=== PATIENT | male | born 1945 | race American Indian/Alaskan Native ===

== ENCOUNTER 2016-12-02 10:16 | Inpatient (IN) | payer MEDICARE, OTHER ==
--- NOTE | 2016-12-02 11:06 | Emergency Department Report ---
Entered by ROLAND ROY, acting as scribe for AJNA JOHN NP. Chief Complaint: Abdominal Pain Stated Complaint: ABD PAIN Time Seen by Provider: 12/02/16 10:58 - HPI History of Present Illness: 71 y/o non-toxic, non ill-appearing male in no acute distress presents to ED c/ o abdominal pain and constipation since 1 week ago. Denies N/V, epigastric pain. Was seen at [facility] 1 week ago for the same complaints, where CT scan was performed with normal results. No relief despite administering stool softeners. Pt advises his Sx persisted and became worse with being "unable to sense cold and heat" on the right side of his body. 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 - ROS Review of Systems: + abdominal pain, right side numbness, constipation - N/V, chest pain, SOB - Exam Vital Signs: Vital Signs 12/02/16 10:50 Temperature 98.4 F Pulse Rate 89 Respiratory 20 Rate Blood Pressure 150/94 O2 Sat by Pulse 94 Oximetry Physical Exam: No abdominal point tenderness, no rebound tenderness, normal bowel sounds x 4, non-distended MSE screening note: Focused history and physical exam performed. Due to findings the following was ordered: UA, amylase, CBC, CMP, lipase ED Disposition for MSE Condition: Stable This documentation as recorded by the scribe,ROLAND ROY,accurately reflects the service I personally performed and the decisions made by ALVARO gray MARTIN, KRISTOPHER.
[2016-12-02 11:23] LABS: Basophils % (Auto) 0.8 % (0.0-1.8); Eosinophils % (Auto) 2.7 % (0.0-4.3); Hematocrit 43.3 % (35.5-45.6); Hemoglobin 14.6 gm/dl (11.8-15.2); Mean Corpuscular HGB Conc 34 % (32-34); Mean Corpuscular Hemoglobin 31 pg (28-32); Mean Corpuscular Volume 93 fl (84-94); Platelet Count 213 K/mm3 (140-440); Red Blood Count 4.65 M/mm3 (3.65-5.03); Red Cell Distribution Width 13.2 % (13.2-15.2); White Blood Count 8.5 K/mm3 (4.5-11.0)
[2016-12-02 11:39] LABS: Alanine Aminotransferase 12 units/L (7-56); Albumin 4.1 g/dL (3.9-5); Albumin/Globulin Ratio 1.2 %; Amylase 53 units/L (27-131); Anion Gap 14 mmol/L; BUN/Creatinine Ratio 13.33; Blood Urea Nitrogen 12 mg/dL (9-20); Calcium 9.4 mg/dL (8.4-10.2); Carbon Dioxide 32 mmol/L (22-30); Chloride 101.5 mmol/L (98-107); Glucose 130 mg/dL (75-100); Lipase 21 units/L (13-60); Potassium 4.9 mmol/L (3.6-5.0); Sodium 143 mmol/L (137-145); Total Protein 7.4 g/dL (6.3-8.2)
[2016-12-02 12:03] LABS: Alkaline Phosphatase 66 units/L (35-129)
[2016-12-02 14:02] LABS: Bilirubin,Urine NEG (Negative); Blood,Urine SM (Negative); Ketones,Urine NEG (Negative); Leukocyte Esterase,Urine NEG (Negative); Mucus,Urine FEW /HPF; Nitrite,Urine NEG (Negative); Urobilinogen,Urine < 2.0 mg/dL (<2.0); WBC,Urine < 1.0 /HPF (0.0-6.0)
[2016-12-02] MEDS ORDERED: ZOFRAN ODT PO ONE (14:31)
[2016-12-02] MEDS ORDERED: TYLENOL PO ONE (14:31)
[2016-12-02] MEDS ORDERED: BENTYL PO ONE (14:31)
--- NOTE | 2016-12-02 14:32 | Emergency Department Report ---
ED General Adult HPI - General Chief complaint: Abdominal Pain Stated complaint: ABD PAIN Time Seen by Provider: 12/02/16 14:18 Source: patient, RN notes reviewed, old records reviewed Mode of arrival: Ambulatory Limitations: No Limitations - History of Present Illness Initial comments: This is a 71-year-old male. He is previously unknown to me. The patient presents to the ER with 2 complaints. The patient's first complaint is abdominal pain and constipation. It has been present for a few days. The abdominal pain is achy. It does not radiate anywhere. No vomiting. No chest pain or shortness of breath. No testicular pain. Patient reports that he is constipated and defecating less than normally. The patient's last complaint is change in sensation. He reports an inability to perceive temperatures, hot and cold in his right upper extremity and right lower extremity. This has been present for one week. It is constant. It was associated with transient change in ability to swallow. This dysphasia has since resolved. These sensory changes are constant, and have no exacerbating or relieving factors. -: Gradual Location: abdomen, right, upper extremity Quality: aching Consistency: constant Improves with: none Worsens with: none Associated Symptoms: denies: confusion, chest pain, cough, diaphoresis, fever/ chills, headaches, loss of appetite, malaise, nausea/vomiting, rash, shortness of breath, syncope, weakness - Related Data Previous Rx's Medication Instructions Recorded Last Taken Type Bisacodyl [Dulcolax] 5 mg PO DAILY PRN #7 tab 12/04/16 Unknown Rx Clopidogrel [Plavix] 75 mg PO QDAY #30 tablet 12/04/16 Unknown Rx Sennosides/Docusate Sodium 1 each PO BID #60 tablet 12/04/16 Unknown Rx [Doc-Q-Lax Tablet] Simvastatin [Zocor TAB] 20 mg PO QHS #30 tablet 12/04/16 Unknown Rx Allergies Allergy/AdvReac Type Severity Reaction Status Date / Time No Known Allergies Allergy Unverified 12/02/16 10:50 ED Review of Systems ROS: Stated complaint: ABD PAIN Other details as noted in HPI Constitutional: denies: fever Eyes: denies: vision change ENT: denies: epistaxis Respiratory: denies: cough Cardiovascular: denies: palpitations Gastrointestinal: constipation Genitourinary: denies: testicular pain Musculoskeletal: denies: arthralgia Neurological: numbness, paresthesias. denies: headache, weakness, abnormal gait , vertigo ED Past Medical Hx - Past Medical History Previous Medical History?: Yes Additional medical history: Abdominal pain - Surgical History Past Surgical History?: No - Social History Smoking Status: Former Smoker Substance Use Type: Alcohol, Prescribed - Medications Home Medications: Home Medications Medication Instructions Recorded Confirmed Last Taken Type Bisacodyl [Dulcolax] 5 mg PO DAILY PRN #7 tab 12/04/16 Unknown Rx Clopidogrel [Plavix] 75 mg PO QDAY #30 tablet 12/04/16 Unknown Rx Sennosides/Docusate Sodium 1 each PO BID #60 tablet 12/04/16 Unknown Rx [Doc-Q-Lax Tablet] Simvastatin [Zocor TAB] 20 mg PO QHS #30 tablet 12/04/16 Unknown Rx ED Physical Exam - General Limitations: No Limitations General appearance: alert, in no apparent distress - Head Head exam: Present: atraumatic, normocephalic - Eye Eye exam: Present: normal appearance, EOMI. Absent: nystagmus - ENT ENT exam: Present: normal exam, normal orophraynx, mucous membranes moist, normal external ear exam - Neck Neck exam: Present: normal inspection, full ROM. Absent: tenderness, meningismus - Respiratory Respiratory exam: Present: normal lung sounds bilaterally. Absent: respiratory distress, wheezes, rales, rhonchi, stridor, chest wall tenderness, accessory muscle use, decreased breath sounds, prolonged expiratory - Cardiovascular Cardiovascular Exam: Present: regular rate, normal rhythm, normal heart sounds. Absent: bradycardia, tachycardia, irregular rhythm, systolic murmur, diastolic murmur, rubs, gallop - GI/Abdominal GI/Abdominal exam: Present: soft, normal bowel sounds. Absent: distended, tenderness, guarding, rebound, rigid, pulsatile mass - Rectal Rectal exam: Present: deferred - Extremities Exam Extremities exam: Present: normal inspection, full ROM, normal capillary refill. Absent: pedal edema, joint swelling, calf tenderness - Back Exam Back exam: Present: normal inspection, full ROM. Absent: tenderness, CVA tenderness (R), CVA tenderness (L), muscle spasm, paraspinal tenderness, vertebral tenderness - Neurological Exam Neurological exam: Present: alert, oriented X3, normal gait, reflexes normal ( downgoing plantar reflexes bilaterally.), other (there is no facial droop. The tongue is midline. Extraocular movements are intact bilaterally. Sensation is intact to light touch in the bilateral V1, V2, V3 distribution. There is 5/5 strength in the upper and lower extremities bilaterally. Proprioception is intact in 4 extremities. 2. discrimination is not intact in 4 extremities. Sensation is decreased to perception of heat and cold in the right upper extremity and right lower extremity. Sensation is decreased to pinprick in the right upper extremity and right lower extremity.) - Psychiatric Psychiatric exam: Present: normal affect, normal mood - Skin Skin exam: Present: warm, dry, intact, normal color. Absent: rash ED Course Vital Signs 12/02/16 12/02/16 12/02/16 10:50 12:17 12:21 Temperature 98.4 F Pulse Rate 89 Respiratory 20 Rate Blood Pressure 150/94 161/93 O2 Sat by Pulse 94 99 99 Oximetry 12/02/16 12/02/16 12/02/16 12:26 12:30 12:41 Temperature Pulse Rate Respiratory 18 Rate Blood Pressure 144/91 144/91 O2 Sat by Pulse 100 99 98 Oximetry 12/02/16 12/02/16 12/02/16 12:51 13:00 13:11 Temperature Pulse Rate Respiratory Rate Blood Pressure 144/82 144/85 144/85 O2 Sat by Pulse 99 99 99 Oximetry 12/02/16 12/02/16 12/02/16 13:21 13:47 13:51 Temperature Pulse Rate Respiratory Rate Blood Pressure 172/113 172/113 172/113 O2 Sat by Pulse 96 99 96 Oximetry 12/02/16 12/02/16 12/02/16 14:00 14:11 14:41 Temperature Pulse Rate Respiratory Rate Blood Pressure 164/125 164/125 165/103 O2 Sat by Pulse 97 100 Oximetry 12/02/16 12/02/16 12/02/16 14:51 15:00 15:10 Temperature Pulse Rate Respiratory Rate Blood Pressure 163/97 170/106 170/106 O2 Sat by Pulse 98 97 87 Oximetry 12/02/16 12/02/16 12/02/16 17:14 17:21 17:30 Temperature Pulse Rate Respiratory Rate Blood Pressure 143/94 143/94 151/93 O2 Sat by Pulse 97 98 97 Oximetry 05/03/1312/02/16 12/02/16 17:41 17:51 18:00 Temperature Pulse Rate Respiratory Rate Blood Pressure 170/106 143/94 165/88 O2 Sat by Pulse 96 98 97 Oximetry 12/02/16 12/02/16 12/02/16 18:11 18:21 18:31 Temperature Pulse Rate Respiratory Rate Blood Pressure 165/88 162/79 162/79 O2 Sat by Pulse 98 97 85 Oximetry 12/02/16 12/02/16 12/02/16 18:41 18:51 19:00 Temperature Pulse Rate Respiratory Rate Blood Pressure 142/79 167/108 169/96 O2 Sat by Pulse 94 98 97 Oximetry 12/02/16 12/02/16 12/02/16 19:11 19:21 19:31 Temperature Pulse Rate Respiratory Rate Blood Pressure 169/96 160/105 165/104 O2 Sat by Pulse 98 98 97 Oximetry 12/02/16 19:41 Temperature Pulse Rate Respiratory Rate Blood Pressure 165/104 O2 Sat by Pulse 98 Oximetry - Reevaluation(s) Reevaluation #1: 12/02/16 16:57 differential diagnosis: Constipation, radiculopathy, sensory stroke Assessment and plan: 71-year-old male with 2 complaints. Abdomen is soft. Noncontrast CT scan of the abdomen and pelvis negative for acute disease. He is not clinically or radiographically obstructed. His nonspecific sensory complaints, symptoms have been present for days, therefore he is not a TPA candidate. The CT scan is sent to the neurology cost consultant at [place], [facility], who recommended acquisition of MRI, MRA of the head and neck to exclude sensory stroke. The patient indicates he will stay for this workup. Dr. Corley, the [facility] physician accepts the patient to his service. ED Medical Decision Making - Lab Data Result diagrams: 12/02/16 11:05 12/02/16 11:05 Vital Signs 12/02/16 12/02/16 12/02/16 10:50 12:17 12:21 Temperature 98.4 F Pulse Rate 89 Respiratory 20 Rate Blood Pressure 150/94 161/93 O2 Sat by Pulse 94 99 99 Oximetry 12/02/16 12/02/16 12/02/16 12:26 12:30 12:41 Temperature Pulse Rate Respiratory 18 Rate Blood Pressure 144/91 144/91 O2 Sat by Pulse 100 99 98 Oximetry 12/02/16 12/02/16 12/02/16 12:51 13:00 13:11 Temperature Pulse Rate Respiratory Rate Blood Pressure 144/82 144/85 144/85 O2 Sat by Pulse 99 99 99 Oximetry 12/02/16 12/02/16 12/02/16 13:21 13:47 13:51 Temperature Pulse Rate Respiratory Rate Blood Pressure 172/113 172/113 172/113 O2 Sat by Pulse 96 99 96 Oximetry 12/02/16 12/02/16 12/02/16 14:00 14:11 14:41 Temperature Pulse Rate Respiratory Rate Blood Pressure 164/125 164/125 165/103 O2 Sat by Pulse 97 100 Oximetry 12/02/16 12/02/16 12/02/16 14:51 15:00 15:10 Temperature Pulse Rate Respiratory Rate Blood Pressure 163/97 170/106 170/106 O2 Sat by Pulse 98 97 87 Oximetry Lab Results 12/02/16 12/02/16 12/02/16 Range/Units 11:05 11:05 13:37 WBC 8.5 (4.5-11.0) K/mm3 RBC 4.65 (3.65-5.03) M/mm3 Hgb 14.6 (11.8-15.2) gm/dl Hct 43.3 (35.5-45.6) % MCV 93 (84-94) fl MCH 31 (28-32) pg MCHC 34 (32-34) % RDW 13.2 (13.2-15.2) % Plt Count 213 (140-440) K/mm3 Lymph % (Auto) 22.4 (13.4-35.0) % [place] % (Auto) 10.4 H (0.0-7.3) % Eos % (Auto) 2.7 (0.0-4.3) % Baso % (Auto) 0.8 (0.0-1.8) % Lymph # 1.9 (1.2-5.4) K/mm3 [place] # 0.9 H (0.0-0.8) K/mm3 Eos # 0.2 (0.0-0.4) K/mm3 Baso # 0.1 (0.0-0.1) K/mm3 Seg Neutrophils % 63.7 (40.0-70.0) % Seg Neutrophils # 5.4 (1.8-7.7) K/mm3 Sodium 143 (137-145) mmol/L Potassium 4.9 (3.6-5.0) mmol/L Chloride 101.5 (98-107) mmol/L Carbon Dioxide 32 H (22-30) mmol/L Anion Gap 14 mmol/L BUN 12 (9-20) mg/dL Creatinine 0.9 (0.8-1.5) mg/dL Estimated GFR > 60 ml/min BUN/Creatinine Ratio 13.33 % Glucose 130 H (75-100) mg/dL Calcium 9.4 (8.4-10.2) mg/dL Total Bilirubin 0.50 (0.1-1.2) mg/dL AST 17 (5-40) units/L ALT 12 (7-56) units/L Alkaline Phosphatase 66 (35-129) units/L Total Protein 7.4 (6.3-8.2) g/dL Albumin 4.1 (3.9-5) g/dL Albumin/Globulin Ratio 1.2 % Amylase 53 (27-131) units/L Lipase 21 (13-60) units/L Urine Color Yellow (Yellow) Urine Turbidity Clear (Clear) Urine pH 6.0 (5.0-7.0) Ur Specific [place] 1.014 (1.003-1.030) Urine Protein 30 mg/dl (Negative) mg/dL Urine Glucose (UA) Neg (Negative) mg/dL Urine Ketones Neg (Negative) mg/dL Urine Blood Sm (Negative) Urine Nitrite Neg (Negative) Urine Bilirubin Neg (Negative) Urine Ictotest Not Reportable Urine Urobilinogen < 2.0 (<2.0) mg/dL Ur Leukocyte Esterase Neg (Negative) Urine WBC (Auto) < 1.0 (0.0-6.0) /HPF Urine RBC (Auto) 3.0 (0.0-6.0) /HPF U Epithel Cells (Auto) < 1.0 (0-13.0) /HPF Urine Mucus Few /HPF - EKG Data When compared to previous EKG there are: previous EKG unavailable 12/02/16 17:18 Normal sinus, 68 bpm, left axis deviation, not consistent with STEMI - Radiology Data Radiology results: report reviewed, image reviewed Noncontrast CT scan of the brain is negative. Noncontrast CT scan of the abdomen and pelvis is negative. Critical care attestation.: If time is entered above; I have spent that time in minutes in the direct care of this critically ill patient, excluding procedure time. ED Disposition Clinical Impression: Abdominal pain, History of sensory changes Disposition: OP ADMITTED IP TO THIS HOSP Is pt being admited?: Yes Does the pt Need Aspirin: Yes Condition: Stable
--- NOTE | 2016-12-02 15:48 | Cat Scan Report ---
CT HEAD WITHOUT CONTRAST: HISTORY: Right sided numbness. Serial contiguous axial images were obtained through the cranium. Intravenous contrast material was not administered. The ventricles are normal in size and appearance. There is no mass effect or midline shift. No areas of abnormally increased or decreased attenuation are seen. No mass lesion is seen. The mastoid air cells and visualized portions of the sinuses are normal. IMPRESSION: No acute intracranial process is appreciated.
--- NOTE | 2016-12-02 15:49 | Cat Scan Report ---
CT OF THE ABDOMEN AND PELVIS WITHOUT CONTRAST HISTORY: Abdominal pain. TECHNIQUE: Helical CT without contrast. Sagittal and coronal reformatted images. FINDINGS: Within the limits of a noncontrast exam, the abdominal and pelvic viscera are within normal limits. The liver, biliary system, pancreas, spleen, kidneys, adrenal glands and bladder are unremarkable. 3 cm cyst in the midright kidney is noted. The bowel loops are normal caliber and wall thickness. Normal appendix. The aorta is normal caliber. No ascites, bulky adenopathy or inflammatory changes. The lung bases are clear. Normal heart size. No suspicious bony lesion. IMPRESSION: No acute abdominal process identified.
[2016-12-02] MEDS ORDERED: BABY ASPIRIN PO ONE (17:00)
--- NOTE | 2016-12-02 17:13 | History and Physical Report ---
History of Present Illness Chief complaint: I felt weak on my right side, and i havent gone to the bathroom in a week History of present illness: 71 YO Male with Obesity, presents to ED for evaluation. Pt states that he has experienced Right sided weakness for the past week. Pt states that symptoms come and go. Pt acknowledges transient inability to swallow and changes in his speech. Pt also complains of chronic constipation with no bowel movements in the past week. Pt states that has has small amounts of formed stool, but denies changes in stool size, caliber, or content, BRBPR, pencil thin stool, unintentional weight loss, night sweats. Pt had normal colonoscopy 3 years ago. Pt states that he just feels "broke down" Past History Past Medical History: other (obesity) Past Surgical History: Other (colonoscopy x3) Social history: . denies: smoking, alcohol abuse, prescription drug abuse Family history: diabetes, hypertension Medications and Allergies Allergies Allergy/AdvReac Type Severity Reaction Status Date / Time No Known Allergies Allergy Unverified 12/02/16 10:50 Home Medications Medication Instructions Recorded Confirmed Last Taken Type No Known Home Medications [No 12/02/16 12/02/16 Unknown History Reported Home Medications] Review of Systems All systems: negative Constitutional: weakness, other (constipation) Exam - Constitutional Vitals: Temp Pulse Resp BP Pulse Ox 98.4 F 89 18 170/106 87 12/02/16 10:50 12/02/16 10:50 12/02/16 12:26 12/02/16 15:10 12/02/16 15:10 General appearance: Present: obese - EENT Eyes: Present: PERRL ENT: hearing intact, clear oral mucosa - Neck Neck: Present: supple, normal ROM - Respiratory Respiratory effort: normal Respiratory: bilateral: CTA - Cardiovascular Heart Sounds: Present: S1 & S2. Absent: rub, click - Extremities Extremities: pulses symmetrical, No edema Peripheral Pulses: within normal limits - Abdominal General gastrointestinal: Present: soft, non-tender, non-distended, normal bowel sounds Male genitourinary: Present: normal - Integumentary Integumentary: Present: clear, warm, dry - Musculoskeletal Musculoskeletal: gait normal, strength equal bilaterally - Psychiatric Psychiatric: appropriate mood/affect, intact judgment & insight - Neurologic Neurologic: CNII-XII intact, moves all extremities Results - Labs CBC & Chem 7: 05/08/17 11:05 12/02/16 11:05 Labs: Abnormal lab results 12/02/16 12/02/16 Range/Units 11:05 11:05 [place] % (Auto) 10.4 H (0.0-7.3) % [place] # 0.9 H (0.0-0.8) K/mm3 Carbon Dioxide 32 H (22-30) mmol/L Glucose 130 H (75-100) mg/dL Assessment and Plan - Patient Problems (1) TIA (transient ischemic attack) Current Visit: Yes Status: Acute Qualifiers: Transient cerebral ischemia type: T Plan to address problem: Stroke Protocol: MRI/MRA Brain, CT Head, PT/OT/ Speech Therapy, antiplatelet therapy, lipid panel (2) Constipation Current Visit: Yes Status: Acute Qualifiers: Constipation type: C Plan to address problem: bowel regimen (3) Obesity (BMI 30.0-34.9) Current Visit: Yes Status: Acute Plan to address problem: Pt counseled regarding balanced diet, increased physical activity (4) DVT prophylaxis Current Visit: Yes Status: Acute
[2016-12-02] MEDS ORDERED: PHENERGAN PR PRN (19:14)
[2016-12-02] MEDS ORDERED: DULCOLAX PR PRN (19:14)
[2016-12-02] MEDS ORDERED: ZOFRAN IV PRN (19:14)
[2016-12-02] MEDS ORDERED: SODIUM CHLORIDE FLUSH SYRINGE 10 ML IV PRN (19:14)
[2016-12-02] MEDS ORDERED: TYLENOL PO PRN (19:14)
[2016-12-02] MEDS ORDERED: REGLAN PO PRN (19:14)
[2016-12-02] MEDS ORDERED: SENOKOT S PO PRN (19:18)
[2016-12-02] MEDS ORDERED: DULCOLAX PO PRN (19:19)
[2016-12-02] MEDS ORDERED: CITRATE OF MAGNESIA PO ONE (19:19)
--- NOTE | 2016-12-02 19:43 | Admit Criteria Form ---
Admission Criteria Documentation: ABDOMINAL PAIN Clinical Indications for Admission to Inpatient Care (Place 'X' for any and all applicable criteria): Admission is indicated for ANY ONE of the following(1)(2)(3)(4)(5): [X ]I. Inpatient admission required rather than observation care (Also use Abdominal Pain: Observation Care, as appropriate) because of ANY ONE of the following: [ ]a) Severe pain requiring acute inpatient management [ ]b) Identification of etiology/finding that requires inpatient care (eg, aortic dissection, free air) [ ]c) Absent bowel sounds with complete ileus(6) [ ]d) Suspected toxic megacolon [ ]e) Severe electrolyte abnormalities requiring inpatient care [ ]f) High fever or infection requiring inpatient admission as indicated by ANY ONE of following(7)(8): [ ] i) Appropriate outpatient or observational care antimicrobial treatment unavailable, not effective, or not feasible [ ] ii) Documented bacteremia [ ] iii) Temperature > 104.9 degrees F (oral) [ ] iv) T >103.1 F (oral) or < 96.8 F(rectal) that does not respond to all emergency treatment measures [ ]g) Signs of intestinal obstruction [B] [ ]h) Hemodynamic instability [ ]i) IV fluid to replace significant ongoing losses (greater than 3 L/m2 per day) (12)(13) [ ]j) Percutaneous or open drainage (eg, abscess, biliary tract ) procedures [ ]k) Parenteral nutrition regimen that must be implemented on inpatient basis [ X]l) Other condition,treatment or monitoring requiring inpatient admission. [ ]II. Peritoneal signs present [ ]III. Surgery needed that cannot be performed on an ambulatory basis. [ ]IV. Evaluation requires patient to not eat or drink for extended period ( eg, more than 24 hours). [ ]V. Contraindications and/or Inappropriate clinical situations for Observational Care in patients with abdominal pain, when ANY ONE of the following is required: [ ]a) Thorough evaluation is required to prevent catastrophic events due to delays in diagnosing (e.g.Mesenteric ischemia) 1,3 [ ]b) Patient with severe pathology or with chronic symptoms unlikely to improve in the ED stay (3) [X ]. General contraindications and/or Inappropriate clinical situations for Observational Care in patients with abdominal pain, when ANY ONE of the following is required: [X ]a) Prediction of prolongation of LOS based on ANY ONE of the following may be considered as a contraindication for observational care 2, 3, 4, 5, 6, 7, 8, 9, 10, 11 [ X]i) Age > 65 yrs. [ ]ii) Patient arriving by ambulance [ ]iii) Patient with high acuity [ ]iv) Patient requiring vital sign monitoring [ ]v) Patient on IV medication [ ]b) Systolic blood pressures 180mmHg 3,12 [ ]c) Patient with altered mental status including delirium and other alteration of consciousness, (3) [ ]d) Patient whose discharge disposition will be to a nursing home home or rehabilitation home should not be managed in Emergency Department Observation Unit. CMS rule requires 3 days hospital stay before such placement.3,13 [ ]e) Patient with failure to thrive due to broad array of etiologies 3,16,17 [ ]f) Inability to ambulate 3,14 Extended stay beyond goal length of stay may be needed for(2)(3): [ ]a) Persistent abdominal pain with suspected intra-abdominal process [ ]b) Diagnosed condition requiring continued stay (e.g., pancreatitis, complicated diverticulitis) [ ]c) Surgery (e.g., colectomy) The original [facility] content created by [employer] has been revised. The portions of the content which have been revised are identified through the use of italic text or in bold, and [facility] has neither reviewed nor approved the modified material.All other unmodified content is copyright [facility]. Please see references footnoted in the original [facility] edition 2016 Admission Criteria Met: Yes
[2016-12-02] MEDS: ZOCOR PO SCH (23:06)
[2016-12-03] MEDS ORDERED: APRESOLINE IV PRN (02:20)
--- NOTE | 2016-12-03 10:33 | Magnetic Resonance Report ---
MRI BRAIN WITHOUT CONTRAST INDICATION: Stroke. COMPARISON: Head CT from yesterday. FINDINGS: Noncontrast multiplanar and multisequence MRI of the brain demonstrate 2-3 small foci of acute restricted diffusion in the left cerebellar hemisphere measuring up to 8 mm as on axial diffusion series 4, images 9-11. Subtle 8mm restricted diffusion focus in the brainstem inferiorly noted on the left posteriorly, axial image 10. Age-appropriate supratentorial appearance with symmetric ventricles and sulci with mild periventricular and few white matter FLAIR and T2 weighted hyperintensities. No acute hemorrhage, mass effect or midline shift. No abnormal extra axial fluid collections. Normal major intracranial vascular flow voids. Preserved basilar cisterns with symmetric seventh and eighth nerve complexes. Bilateral maxillary sinus mucosal thickening inferiorly, approximately 1.7 cm on the left and greater than the right. Mild bilateral ethmoid sinusitis. Slight right frontal and right sphenoid sinus mucosal thickening as well. Clear remainder imaged paranasal sinuses and temporal bone air cells. Mastoid tips not well pneumatized. Normal eye globes. Normal midline structures without evidence of Chiari malformation. CONCLUSION: 1. Small foci of acute infarctions in the left cerebellar hemisphere and in the inferior brainstem on the left, as described. 2. Age-appropriate atrophy, microvascular changes and mild sinusitis, as described. Thank you for the opportunity to participate in this patient's care.
--- NOTE | 2016-12-03 11:02 | Magnetic Resonance Report ---
MRA HEAD WITHOUT CONTRAST INDICATION: Stroke. COMPARISON: None similar. FINDINGS: MRA of the head performed without intravenous contrast and demonstrates no evidence of flow-limiting stenosis, occlusion or vascular malformation. Patent vertebrobasilar arteries. Please note that detection of aneurysms less than 5 mm is limited on this exam. CONCLUSION: Normal study of the [place]. Thank you for the opportunity to participate in this patient's care.
--- NOTE | 2016-12-03 12:58 | Progress Note ---
Assessment and Plan - Patient Problems (1) TIA (transient ischemic attack) Current Visit: Yes Status: Acute Qualifiers: Transient cerebral ischemia type: T Plan to address problem: Stroke Protocol: MRI/MRA Brain, CT Head, PT/OT/ Speech Therapy, antiplatelet therapy, lipid panel (2) Constipation Current Visit: Yes Status: Acute Qualifiers: Constipation type: C Plan to address problem: bowel regimen (3) Obesity (BMI 30.0-34.9) Current Visit: Yes Status: Acute Plan to address problem: Pt counseled regarding balanced diet, increased physical activity (4) DVT prophylaxis Current Visit: Yes Status: Acute History Interval history: Pt resting in be, No reported nursing events. Pt denies pain, productive cough. Hospitalist Physical - Constitutional Vitals: Temp Pulse Resp BP Pulse Ox 97.8 F 93 H 18 119/69 98 12/03/16 09:18 12/03/16 09:18 12/03/16 09:18 12/03/16 09:18 12/03/16 09:18 General appearance: Present: obese - EENT Eyes: Present: PERRL, EOM intact ENT: hearing intact - Neck Neck: Present: supple - Respiratory Respiratory effort: normal Respiratory: bilateral: CTA - Cardiovascular Rhythm: regular Heart Sounds: Present: S1 & S2 - Extremities Extremities: no ischemia Peripheral Pulses: within normal limits - Abdominal General gastrointestinal: soft, non-tender, non-distended - Integumentary Integumentary: Present: clear, dry - Psychiatric Psychiatric: appropriate mood/affect - Neurologic Neurologic: CNII-XII intact Results - Labs CBC & Chem 7: 12/02/16 11:05 12/02/16 11:05 Labs: Laboratory Last Values WBC 8.5 K/mm3 (4.5-11.0) 12/02/16 11:05 RBC 4.65 M/mm3 (3.65-5.03) 12/02/16 11:05 Hgb 14.6 gm/dl (11.8-15.2) 12/02/16 11:05 Hct 43.3 % (35.5-45.6) 12/02/16 11:05 MCV 93 fl (84-94) 12/02/16 11:05 MCH 31 pg (28-32) 12/02/16 11:05 MCHC 34 % (32-34) 12/02/16 11:05 RDW 13.2 % (13.2-15.2) 12/02/16 11:05 Plt Count 213 K/mm3 (140-440) 12/02/16 11:05 Lymph % (Auto) 22.4 % (13.4-35.0) 12/02/16 11:05 [place] % (Auto) 10.4 % (0.0-7.3) H 12/02/16 11:05 Eos % (Auto) 2.7 % (0.0-4.3) 12/02/16 11:05 Baso % (Auto) 0.8 % (0.0-1.8) 12/02/16 11:05 Lymph # 1.9 K/mm3 (1.2-5.4) 12/02/16 11:05 [place] # 0.9 K/mm3 (0.0-0.8) H 12/02/16 11:05 Eos # 0.2 K/mm3 (0.0-0.4) 12/02/16 11:05 Baso # 0.1 K/mm3 (0.0-0.1) 12/02/16 11:05 Seg Neutrophils % 63.7 % (40.0-70.0) 12/02/16 11:05 Seg Neutrophils # 5.4 K/mm3 (1.8-7.7) 12/02/16 11:05 Sodium 143 mmol/L (137-145) 12/02/16 11:05 Potassium 4.9 mmol/L (3.6-5.0) 12/02/16 11:05 Chloride 101.5 mmol/L (98-107) 12/02/16 11:05 Carbon Dioxide 32 mmol/L (22-30) H 12/02/16 11:05 Anion Gap 14 mmol/L 12/02/16 11:05 BUN 12 mg/dL (9-20) 12/02/16 11:05 Creatinine 0.9 mg/dL (0.8-1.5) 12/02/16 11:05 Estimated GFR > 60 ml/min 12/02/16 11:05 BUN/Creatinine Ratio 13.33 % 12/02/16 11:05 Glucose 130 mg/dL (75-100) H 12/02/16 11:05 POC Glucose 102 (70-105) 12/03/16 01:43 Calcium 9.4 mg/dL (8.4-10.2) 12/02/16 11:05 Total Bilirubin 0.50 mg/dL (0.1-1.2) 12/02/16 11:05 AST 17 units/L (5-40) 12/02/16 11:05 ALT 12 units/L (7-56) 12/02/16 11:05 Alkaline Phosphatase 66 units/L (35-129) 12/02/16 11:05 Troponin T < 0.010 ng/mL (0.00-0.029) 12/02/16 17:49 Total Protein 7.4 g/dL (6.3-8.2) 12/02/16 11:05 Albumin 4.1 g/dL (3.9-5) 12/02/16 11:05 Albumin/Globulin Ratio 1.2 % 12/02/16 11:05 Triglycerides 81 mg/dL (2-149) 12/03/16 03:49 Cholesterol 214 mg/dL (50-199) H 12/03/16 03:49 LDL Cholesterol Direct 119 mg/dL (50-130) 12/03/16 03:49 HDL Cholesterol 79 mg/dL (40-59) H 12/03/16 03:49 Cholesterol/HDL Ratio 2.70 % 12/03/16 03:49 Amylase 53 units/L (27-131) 12/02/16 11:05 Lipase 21 units/L (13-60) 12/02/16 11:05 Urine Color Yellow (Yellow) 12/02/16 13:37 Urine Turbidity Clear (Clear) 12/02/16 13:37 Urine pH 6.0 (5.0-7.0) 12/02/16 13:37 Ur Specific [place] 1.014 (1.003-1.030) 12/02/16 13:37 Urine Protein 30 mg/dl mg/dL (Negative) 12/02/16 13:37 Urine Glucose (UA) Neg mg/dL (Negative) 12/02/16 13:37 Urine Ketones Neg mg/dL (Negative) 12/02/16 13:37 Urine Blood Sm (Negative) 12/02/16 13:37 Urine Nitrite Neg (Negative) 12/02/16 13:37 Urine Bilirubin Neg (Negative) 12/02/16 13:37 Urine Ictotest Not Reportable 12/02/16 13:37 Urine Urobilinogen < 2.0 mg/dL (<2.0) 12/02/16 13:37 Ur Leukocyte Esterase Neg (Negative) 12/02/16 13:37 Urine WBC (Auto) < 1.0 /HPF (0.0-6.0) 12/02/16 13:37 Urine RBC (Auto) 3.0 /HPF (0.0-6.0) 12/02/16 13:37 U Epithel Cells (Auto) < 1.0 /HPF (0-13.0) 12/02/16 13:37 Urine Mucus Few /HPF 12/02/16 13:37
[2016-12-03] MEDS: MILK OF MAGNESIA PO PRN ×2 (18:30→22:38)
[2016-12-03] MEDS: ZOCOR PO SCH (22:38)
--- NOTE | 2016-12-04 14:15 | Discharge Summary ---
Providers - Providers Date of Admission: 12/02/16 19:14 Attending physician: KANIKA IBARRA 12/02/16 22:59 Speech Therapy Evaluation and Treat [CONS] Routine Reason For Exam: trouble swallowing Primary care physician: SEAMJ CARY Hospitalization Condition: Stable Hospital course: 71 YO Male admitted for acute CVA and constipation. Pt treated IAW stroke protocol. Pt admitted to telemetry. Pt convalesced well during hospital course. Pt underwent CT Head which did not reveal acute ischemia, but MRI did reveal focal areas of acute cerebellar ischemia. Pt treated with antiplatelet therapy and statin therapy. Pt treated with bowel regimen with resolution of constipation. Pt medically optimized and back to usual state of health without any neurologic deficit. Pt seen and evaluated prior to discharge but no significant new physical exam findings. Pt counseled regarding stroke risk reduction. Pt discharged home. 35 minutes dedicated to patient discharge and education. Disposition: DISCHARGED TO HOME OR SELFCARE - Discharge Diagnoses (1) TIA (transient ischemic attack) Status: Acute Qualifiers: Transient cerebral ischemia type: T (2) Constipation Status: Acute Qualifiers: Constipation type: C (3) Obesity (BMI 30.0-34.9) Status: Acute (4) DVT prophylaxis Status: Acute Core Measure Documentation - Palliative Care Palliative Care/ Comfort Measures: Not Applicable - Core Measures Any of the following diagnoses?: stroke - Stroke Discharge Requirements Statin for LDL = or >70 mg/dl on DC: Yes Anticoag for atrial fib/atrial flutter: Not Applicable Antithrombotic for ischemic stroke: Yes Exam - Constitutional Vitals: Temp Pulse Resp BP Pulse Ox 97.7 F 74 18 139/91 98 12/04/16 11:40 12/04/16 12:00 12/04/16 11:40 12/04/16 11:40 12/04/16 11:40 General appearance: Present: no acute distress, well-nourished - EENT Eyes: Present: PERRL ENT: hearing intact, clear oral mucosa - Neck Neck: Present: supple, normal ROM - Respiratory Respiratory effort: normal Respiratory: bilateral: CTA - Cardiovascular Heart Sounds: Present: S1 & S2. Absent: rub, click - Extremities Extremities: pulses symmetrical, No edema Peripheral Pulses: within normal limits - Abdominal General gastrointestinal: Present: soft, non-tender, non-distended, normal bowel sounds Male genitourinary: Present: normal - Integumentary Integumentary: Present: clear, warm, dry - Musculoskeletal Musculoskeletal: gait normal, strength equal bilaterally - Psychiatric Psychiatric: appropriate mood/affect, intact judgment & insight - Neurologic Neurologic: CNII-XII intact, moves all extremities Plan Activity: advance as tolerated Diet: low fat, low cholesterol Follow up with: SEMAJ CARY MD [Primary Care Provider] - 3-5 Days Prescriptions: Bisacodyl [Dulcolax] 5 mg PO DAILY PRN #7 tab PRN Reason: Constipation Clopidogrel [Plavix] 75 mg PO QDAY #30 tablet Sennosides/Docusate Sodium [Doc-Q-Lax Tablet] 1 each PO BID #60 tablet Simvastatin [Zocor TAB] 20 mg PO QHS #30 tablet
[2016-12-04 18:19] VITALS: BP 179/85
--- NOTE | 2016-12-09 07:05 | Vascular Lab Report ---
CAROTID DUPLEX STUDY: RIGHT PSVEDV CCA PROX:[id number] CCA DIST: 8923 ICA PROX: 5922 ICA MID: 5823 ICA DIST: 6825 ECA: 8715 VERT: 42 17 LEFT PSVEDV CCA PROX:[id number] CCA DIST: 9528 ICA PROX: 6824 ICA MID: 7529 ICA DIST: 8341 ECA: 7917 VERT: 47 17 REASON FOR EXAM: Stroke. COMMENTS ON THE RIGHT: Doppler frequency analysis is consistent with 16 to 49 percent diameter reduction of the internal carotid artery. Minimal amount of plaque is seen. The common carotid artery is patent. The external carotid artery is patent. The vertebral artery has antegrade flow. COMMENTS ON THE LEFT: Doppler frequency analysis is consistent with 16 to 49 percent diameter reduction of the internal carotid artery. Minimal amount of plaque is seen. The common carotid artery is patent. The external carotid artery is patent. The vertebral artery has antegrade flow. IMPRESSION: Less than 50% diameter reduction in the internal carotid arteries bilaterally. Consider repeat carotid artery duplex in 12 months.
== END 2016-12-04 18:10 | disposition home or self-care (01) | DRG 69 ==
LOC: ED 10:16 → 4A 19:14
PROVIDERS: ADMIT Internal Medicine; ATTEND Internal Medicine
DX: G45.9 Transient cerebral ischemic attack, unspecified (principal); K59.00 Constipation, unspecified; E66.9 Obesity, unspecified; Z68.32 Body mass index [BMI] 32.0-32.9, adult; Z87.891 Personal history of nicotine dependence
CPT/HCPCS: 36415; 70450; 70544; 70551; 74176; 80053; 80061; 81001; 82150; 82962; 83690; 84484; 85025; 93005; 93010; 93306; 93880; G8978-GP; G8979-GP; G8980-GP; G8987-GO; G8988-GO; G8989-GO; G8996-GN; G8997-GN; J0360; Q0162

== ENCOUNTER 2017-04-18 11:00 | Outpatient (CLI) | payer MEDICARE, OTHER | END 2017-04-18 11:01 | disposition home or self-care (01) | LOC: SLR 11:00 | PROVIDERS: ATTEND Otolaryngology | DX: G47.33 Obstructive sleep apnea (adult) (pediatric) (principal); R40.0 Somnolence; I10 Essential (primary) hypertension; E78.00 Pure hypercholesterolemia, unspecified; Z87.891 Personal history of nicotine dependence | CPT/HCPCS: 95811 ==

== ENCOUNTER 2017-06-13 16:01 | Emergency (ER) | payer MEDICARE, OTHER | END 2017-06-13 17:00 | disposition left against medical advice (07) | LOC: ED 16:01 | DX: J34.89 Other specified disorders of nose and nasal sinuses (principal); Z53.21 Procedure and treatment not carried out due to patient leaving prior to being seen by health care provider ==

== ENCOUNTER 2017-07-12 03:52 | Emergency (ER) | payer MEDICARE, OTHER ==
[2017-07-12 04:28] VITALS: BP 164/94
[2017-07-12] MEDS ORDERED: DELTASONE PO ONE (04:49)
--- NOTE | 2017-07-12 04:49 | Emergency Department Report ---
HPI - General Chief Complaint: Allergic Reaction Time Seen by Provider: 07/12/17 04:48 - HPI HPI: This is a 71-year-old male presented to the hospital reports that he had a root canal done last Friday to his right back tooth. He said tonight after eating and black grapes 2 different episodes swelling of right face occurred then resolved. Reports right ear pain. Then resolved. Pain is 0 out of 10 at present. Denies any swelling of tongue, difficulty breathing, swallowing or swelling of the neck. Denies any coughing, wheezes stridor. Denies any fever or chills. Denies any nausea or vomiting. Denies any abdominal or back pain. Denies any headache, dizziness or blurred vision. He states that his symptoms has resolved but he came to be checked out. ED Past Medical Hx - Past Medical History Previous Medical History?: Yes Hx CVA: Yes Hx Diabetes: Yes Additional medical history: Abdominal pain - Surgical History Past Surgical History?: No - Family History Family history: diabetes, hypertension - Social History Smoking Status: Never Smoker Substance Use Type: None - Medications Home Medications: Home Medications Medication Instructions Recorded Confirmed Last Taken Type Bisacodyl [Dulcolax] 5 mg PO DAILY PRN #7 tab 12/04/16 07/12/17 Unknown Rx Clopidogrel [Plavix] 75 mg PO QDAY #30 tablet 12/04/16 07/12/17 Unknown Rx Sennosides/Docusate Sodium 1 each PO BID #60 tablet 12/04/16 07/12/17 Unknown Rx [Doc-Q-Lax Tablet] Simvastatin [Zocor TAB] 20 mg PO QHS #30 tablet 12/04/16 07/12/17 Unknown Rx Amoxicillin 500 mg PO TID 07/12/17 07/12/17 Unknown History HYDROcodone/APAP 5-325 2 tab PO Q4H 07/12/17 07/12/17 Unknown History Prednisone [predniSONE 5 mg (6-Day 5 mg PO QAM 6 Days #1 tab.ds.pk 07/12/17 Unknown Rx Pack, 21 Tabs)] diphenhydrAMINE [Benadryl CAP] 25 mg PO Q8HR PRN 4 Days #12 07/12/17 Unknown Rx capsule ED Review of Systems ROS: Stated complaint: ALLERGIC REACTION Other details as noted in HPI Comment: All other systems reviewed and negative Constitutional: no symptoms reported Eyes: denies: eye discharge, vision change ENT: other (facial swelling and right ear pain that's resolved. Patient said this happened after eating in grapes). denies: ear pain, throat pain, dental pain, congestion Respiratory: no symptoms reported Cardiovascular: denies: chest pain, palpitations, dyspnea on exertion, orthopnea , edema, syncope, paroxysmal nocturnal dyspnea Gastrointestinal: denies: abdominal pain, nausea, vomiting, diarrhea Musculoskeletal: denies: back pain, joint swelling, arthralgia, myalgia Skin: denies: rash Neurological: denies: headache, weakness, numbness, paresthesias, confusion, abnormal gait Physical Exam - Physical Exam Vital Signs: Vital Signs 07/12/17 04:11 Temperature 97 F L Pulse Rate 100 H Respiratory 16 Rate Blood Pressure 164/94 O2 Sat by Pulse 98 Oximetry General: This 71-year-old healthy looking male in no acute distress. Physical Exam: Head: Normocephalic, atraumatic, Eyes: Biateral pupils equal and reactive to light, bilateral EOM intact.. Bilateral conjunctival and sclera without injection, normal accommodation. Neck: Supple, No Cervical adenopathy, full range of motion and no C-spine tenderness. No swelling or tracheal deviation. Cardiovascular: S1, S2. Regular rate and rhythm. No murmur. Capillary refill is less then 3 seconds. Lungs: Clear to auscultate bilaterally. No rhonchi, wheezes or rales. No chest wall tenderness. Mouth: Moist, no trismus. No pharyngeal erythema or exudate. No peritonsillar abscess. No pharyngeal swelling, uvula is midline and oral airways patent. No facial swelling. No erythema to face and face is nontender to palpate Ears: Dann TM pearly dave and bilaterally EACs without any redness or drainage. No mastoid bone tenderness Extremities: No clubbing, cyanosis or edema. +2 pulses. No neurovascular compromise Skin: Clean, dry and intact. No rash or lesions. Psych: Normal mood and behavior ED Course Vital Signs 07/12/17 04:11 Temperature 97 F L Pulse Rate 100 H Respiratory 16 Rate Blood Pressure 164/94 O2 Sat by Pulse 98 Oximetry - Reevaluation(s) Reevaluation #1: 07/12/17 05:37 Patient given prednisone 60 mg by mouth and emergency room for allergic reaction that already resolved. I discussed patient that I cannot give him Benadryl because he is driving and I do not think that he needs it because he is not having any signs of allergic reaction and my physical exam does not show any signs of airway compromise. Observe in emergency room and he is stable and requesting to go home. 07/12/17 05:38 ED Medical Decision Making - Medical Decision Making ED course: Patient he reports that he ate grapes 2 and had right facial swelling with right earache that has resolved. He had no respiratory compromise. Physical findings for normal lungs, normal neck, normal airway and his ears normal exam. Patient observed in emergency room after given Deltasone and he had no episode of allergic reaction. No signs of angioedema. Patient is stable talking clearly, speech is clear and no muffled voice. Discharge home with prescription for prednisone and Benadryl. I discussed patient that if symptoms return and he developed difficulty breathing, cough, wheezing, chest tightness and difficulty swallowing, swelling of tongue or lip to return to emergency room BR[facility]Y otherwise follow up with his primary care physician in 2 days discharged home from emergency room in stable condition Critical care attestation.: If time is entered above; I have spent that time in minutes in the direct care of this critically ill patient, excluding procedure time. ED Disposition Clinical Impression: Minor allergic reaction Qualifiers: Encounter type: initial encounter Qualified Code(s): T78.40XA - Allergy, unspecified, initial encounter Disposition: DC- TO HOME OR SELFCARE Is pt being admited?: No Does the pt Need Aspirin: No Condition: Stable Instructions: Food Allergy (ED) Additional Instructions: Please do not drive or operate heavy machinery while taking Benadryl as this medication causes drowsiness Increase her fluid intake Avoid eating grapes If symptoms recur please return to the emergency room otherwise follow-up with your primary care physician in 2 days Prescriptions: diphenhydrAMINE [Benadryl CAP] 25 mg PO Q8HR PRN 4 Days #12 capsule PRN Reason: Allergic Reaction Prednisone [predniSONE 5 mg (6-Day Pack, 21 Tabs)] 5 mg PO QAM 6 Days #1 [email or web address] Referrals: PRIMARY CARE, [Primary Care Provider] - 07/14/17
== END 2017-07-12 05:50 | disposition home or self-care (01) ==
LOC: ED 03:52
DX: T78.40XA Allergy, unspecified, initial encounter (principal); Y92.9 Unspecified place or not applicable; E11.9 Type 2 diabetes mellitus without complications
CPT/HCPCS: 99282; J7512

== ENCOUNTER 2017-09-29 17:28 | Emergency (ER) | payer MEDICARE, OTHER ==
[2017-09-29 20:00] VITALS: BP 168/101
--- NOTE | 2017-09-29 20:05 | Emergency Department Report ---
Minor Respiratory - HPI Chief Complaint: Earache Stated Complaint: RIGHT EAR PAIN Time Seen by Provider: 09/29/17 19:53 Duration: Today Pain Location: Ear (right ear pain /10) Severity: moderate Minor Respiratory: Yes Rhinorrhea (nasal congestion), Yes Able to Tolerate Fluids, Yes Ear Pain (right ear), No Sore Throat, No Cough, No Sick Contacts, No Hemoptysis, No Chest Pain, No Shortness of Breath, No Fever Other History: This is a 71-year-old male here reporting right ear pain assessment ongoing for over a month. He said he saw ear nose and throat doctor and his primary care doctor. He said he had nosebleeds when he saw ENT and they cauterized his nose but they also looked in his ears and didn't see anything wrong. Denies any cough, shortness of breath or chest pain. Patient with elevated blood pressure of 165/104 and asymptomatic. He said he sees a global sales executive for his blood pressure and he takes medication but he didn't take it today. He says the medication makes him hyper and he told global sales executive and the global sales executive told him to break medication and a half. Denies any fever or chills. Denies any sore throat. Denies any headache, blurred vision or dizziness. ED Review of Systems ROS: Stated complaint: RIGHT EAR PAIN Other details as noted in HPI Comment: All other systems reviewed and negative Constitutional: no symptoms reported Eyes: denies: eye pain, eye discharge ENT: ear pain, congestion. denies: throat pain, dental pain, hearing loss, epistaxis Respiratory: no symptoms reported Cardiovascular: denies: chest pain, palpitations, dyspnea on exertion, edema, syncope, paroxysmal nocturnal dyspnea Gastrointestinal: denies: abdominal pain, nausea, vomiting, diarrhea Genitourinary: denies: dysuria, hematuria Musculoskeletal: denies: back pain, joint swelling, arthralgia Skin: denies: rash Neurological: denies: headache, weakness, numbness, paresthesias, confusion, abnormal gait, vertigo ED Past Medical Hx - Past Medical History Previous Medical History?: Yes Hx CVA: Yes Hx Diabetes: Yes Additional medical history: Abdominal pain - Surgical History Past Surgical History?: No - Family History Family history: no significant - Social History Smoking Status: Never Smoker Substance Use Type: None - Medications Home Medications: Home Medications Medication Instructions Recorded Confirmed Last Taken Type Bisacodyl [Dulcolax] 5 mg PO DAILY PRN #7 tab 12/04/16 07/12/17 Unknown Rx Clopidogrel [Plavix] 75 mg PO QDAY #30 tablet 12/04/16 07/12/17 Unknown Rx Sennosides/Docusate Sodium 1 each PO BID #60 tablet 12/04/16 07/12/17 Unknown Rx [Doc-Q-Lax Tablet] Simvastatin [Zocor TAB] 20 mg PO QHS #30 tablet 12/04/16 07/12/17 Unknown Rx Amoxicillin 500 mg PO TID 07/12/17 07/12/17 Unknown History HYDROcodone/APAP 5-325 2 tab PO Q4H 07/12/17 07/12/17 Unknown History Prednisone [predniSONE 5 mg (6-Day 5 mg PO QAM 6 Days #1 tab.ds.pk 07/12/17 Unknown Rx Pack, 21 Tabs)] diphenhydrAMINE [Benadryl CAP] 25 mg PO Q8HR PRN 4 Days #12 07/12/17 Unknown Rx capsule Cetirizine HCl [ZyrTEC] 10 mg PO QAM 14 Days #14 capsule 09/29/17 Unknown Rx Fluticasone [Flonase] 1 spray NS QDAY 14 Days #1 bottle 09/29/17 Unknown Rx Minor Respiratory Exam - Exam General: Vital signs noted. No distress. Alert and acting appropriately. This is a 71-year-old male well-nourished well-developed in no acute distress. HEENT: Yes Moist Mucous Membranes (uvula midline, oral airways patent), Yes Rhinorrhea (positive nasal congestion), No Pharyngeal Erythema, No Pharyngeal Exudates, No Conjuctival Injection, No Frontal Tenderness, No Maxillary Tenderness Ear: Neither TM Bulge (bilateral TM congested), Neither TM Erythema, Neither EAC Pain, Neither EAC Discharge Neck: Yes Supple (no C-spine tenderness, full range of motion), No Adenopathy Lungs: Yes Good Air Exchange, No Wheezes, No Ronchi, No Stridor, No Cough, No Labored Respirations, No Retractions, No Use of Accessory Muscles, No Other Abnormal Lung Sounds Heart: Yes Regular (S1, S2.), No Murmur Abdomen: Yes Normal Bowel Sounds (in all quadrants), No Tenderness (nontender to palpate in all quadrants, no guarding or rebound tenderness), No Peritoneal Signs Skin: No Rash, No Edema Neurologic: Alert and oriented, no deficits. Alert and oriented 3. GCS of 15, speech is coherent. Normal gait. Musculoskeletal: Unremarkable. Extremity: No clubbing, cyanosis or edema. +2 pulses in all extremities and no neurovascular compromise ED Course Vital Signs 09/29/17 09/29/17 17:45 19:59 Temperature 97.7 F Pulse Rate 96 H 74 Respiratory 18 Rate Blood Pressure 165/104 Blood Pressure 168/101 [Left] O2 Sat by Pulse 96 Oximetry - Reevaluation(s) Reevaluation #1: 09/29/17 20:19 Patient stable throughout ED course his blood pressure is 160/101 and he is on blood pressure medication which she said he'll take when he gets home. He is asymptomatic. Patient does not always take his blood pressure medication ED Medical Decision Making - Medical Decision Making ED course: Patient here for right earache and found to have allergic rhinitis with bilateral nasal congestion and bilateral TM congested. He also has elevated blood pressure with ecchymosis of hypertension and is on blood pressure medication but noncompliant at time. Patient said that medication makes him hyper side effects discussed with him that he needs to talk to his global sales executive regarding and side effects of medication and possibly evaluation of change in. I discussed him that he needs to take his medication when he goes home. I also discussed diagnosis and treatment plan and he voiced understanding and discharged home a prescription for Zyrtec and Flonase and to follow-up with his primary care who is Dr. Keith Kimball MD in 2-3 days. Critical care attestation.: If time is entered above; I have spent that time in minutes in the direct care of this critically ill patient, excluding procedure time. ED Disposition Clinical Impression: Otalgia, right ear, Elevated blood pressure reading with diagnosis of hypertension Allergic rhinitis Qualifiers: Allergic rhinitis trigger: unspecified Allergic rhinitis seasonality: unspecified seasonality Qualified Code(s): J30.9 - Allergic rhinitis, unspecified Disposition: - TO HOME OR SELFCARE Is pt being admited?: No Does the pt Need Aspirin: No Condition: Stable Instructions: Hypertension (ED), Allergic Rhinitis (ED), Earache (ED) Additional Instructions: Takes Zyrtec and Flonase for allergic rhinitis Please keep a a few blood pressure and take to primary care/ global sales executive visit with you Please take your blood pressure medication as prescribed Untreated elevated blood pressure candidate to stroke, heart attack, kidney failure and eventually . Prescriptions: Cetirizine HCl [ZyrTEC] 10 mg PO QAM 14 Days #14 capsule Fluticasone [Flonase] 1 spray NS QDAY 14 Days #1 bottle Referrals: PRIMARY CARE, [Primary Care Provider] - 2-3 Days (Keith Kimball MD, [facility])
== END 2017-09-29 20:35 | disposition home or self-care (01) ==
LOC: ED 17:28
DX: H92.01 Otalgia, right ear (principal); J30.9 Allergic rhinitis, unspecified; I10 Essential (primary) hypertension; E11.9 Type 2 diabetes mellitus without complications
CPT/HCPCS: 99282

== ENCOUNTER 2017-11-13 00:20 | Emergency (ER) | payer MEDICARE, OTHER ==
[2017-11-13 00:28] VITALS: BP 150/92
== END 2017-11-13 00:30 | disposition left against medical advice (07) ==
LOC: ED 00:20
DX: R03.0 Elevated blood-pressure reading, without diagnosis of hypertension (principal); Z53.21 Procedure and treatment not carried out due to patient leaving prior to being seen by health care provider

== ENCOUNTER 2018-10-22 18:14 | Emergency (ER) | payer MEDICARE, OTHER ==
--- NOTE | 2018-10-22 18:21 | Emergency Department Report ---
Blank Doc - Documentation Documentation: This is a 73-year-old male that presents with mid-back pain. Denies any injur ies. This initial assessment/diagnostic orders/clinical plan/treatment(s) is/are subject to change based on patient's health status, clinical progression and re- assessment by fellow clinical providers in the ED. Further treatment and workup at subsequent clinical providers discretion. Patient/guardians urged not to elope from the ED as their condition may be serious if not clinically assessed a nd managed. Initial orders include: 1- Patient sent to MAIN ED for further evaluation and treatment 2- labs 3- EKG
[2018-10-22 18:44] LABS: Basophils # (Auto) 0.1 K/mm3 (0.0-0.1); Basophils % (Auto) 0.9 % (0.0-1.8); Eosinophils # (Auto) 0.3 K/mm3 (0.0-0.4); Eosinophils % (Auto) 3.1 % (0.0-4.3); Hematocrit 41.2 % (35.5-45.6); Hemoglobin 14.1 gm/dl (11.8-15.2); Lymphocytes # (Auto) 2.3 K/mm3 (1.2-5.4); Lymphocytes % (Auto) 24.2 % (13.4-35.0); Mean Corpuscular HGB Conc 34 % (32-34); Mean Corpuscular Hemoglobin 32 pg (28-32); Mean Corpuscular Volume 93 fl (84-94); Monocytes # (Auto) 0.9 K/mm3 (0.0-0.8); Monocytes % (Auto) 9.7 % (0.0-7.3); Platelet Count 231 K/mm3 (140-440); Red Blood Count 4.44 M/mm3 (3.65-5.03); Red Cell Distribution Width 13.8 % (13.2-15.2)
[2018-10-22 19:00] LABS: BUN/Creatinine Ratio 12; Blood Urea Nitrogen 14 mg/dL (9-20); Calcium 9.1 mg/dL (8.4-10.2); Hemolysis Index 21
[2018-10-22 19:02] LABS: INR 0.97 (0.87-1.13)
[2018-10-22 19:03] LABS: Partial Thromboplastin Time 28.4 Sec. (24.2-36.6)
--- NOTE | 2018-10-22 20:24 | XRay Report ---
PROCEDURE: XR CHEST ROUTINE 2V TECHNIQUE: PA and lateral chest radiographs were obtained. HISTORY: Chest Pain COMPARISONS: None. FINDINGS: Heart: Normal. Mediastinum/Vessels: Normal. Lungs/Pleural space: Mild prominence of interstitial markings is noted. There are no areas of consol idation or mass lesions. Pleural spaces are clear.. Bony thorax: No acute osseous abnormality. IMPRESSION: Mild prominence of interstitial markings may represent interstitial fibrosis. Otherwise unremarkable study. This document is electronically signed by Jean Davis MD., October 22 2018 08:22:24 PM ET
--- NOTE | 2018-10-22 21:06 | Emergency Department Report ---
HPI - General Chief Complaint: Back Pain/Injury Time Seen by Provider: 10/22/18 18:19 - HPI HPI: Room 4 The patient is a 73-year-old male presenting with a chief complaint of cough arthralgias and back pain. The patient states for the past 3 weeks she's had a cough occasionally productive of yellow sputum and chills. Patient admits to slight rhinorrhea. Patient states the same time he's had pain in his joints as well as the left paraspinous region of his mid thoracic spine. Patient denies any specific injury. The patient states his back pain feels the same as it did a couple years ago when he had to see a chiropractor and it improved after a djustments. Patient uncertain he's had a fever but admits to chills Location: [See above] Duration: [See above] Quality: [See above] Severity: [See above] Modifying factors: [see above] Context: [see above] Mode of transportation: [not driving] ED Past Medical Hx - Past Medical History Previous Medical History?: Yes Hx Hypertension: Yes Hx CVA: Yes Hx Diabetes: Yes Additional medical history: Abdominal pain - Family History Family history: no significant - Social History Smoking Status: Former Smoker (none 50 years) Substance Use Type: None (denies illicit drug use), Alcohol (rarely) - Medications Home Medications: Home Medications Medication Instructions Recorded Confirmed Last Taken Type Bisacodyl [Dulcolax] 5 mg PO DAILY PRN #7 tab 12/04/16 07/12/17 Unknown Rx Clopidogrel [Plavix] 75 mg PO QDAY #30 tablet 12/04/16 07/12/17 Unknown Rx Sennosides/Docusate Sodium 1 each PO BID #60 tablet 12/04/16 07/12/17 Unknown Rx [Doc-Q-Lax Tablet] Simvastatin (Nf) [Zocor TAB] 20 mg PO QHS #30 tablet 12/04/16 07/12/17 Unknown Rx Amoxicillin 500 mg PO TID 07/12/17 07/12/17 Unknown History HYDROcodone/APAP 5-325 2 tab PO Q4H 07/12/17 07/12/17 Unknown History Prednisone [predniSONE 5 mg (6-Day 5 mg PO QAM 6 Days #1 tab.ds.pk 07/12/17 Unknown Rx Pack, 21 Tabs)] diphenhydrAMINE [Benadryl CAP] 25 mg PO Q8HR PRN 4 Days #12 07/12/17 Unknown Rx capsule Cetirizine HCl [ZyrTEC] 10 mg PO QAM 14 Days #14 capsule 09/29/17 Unknown Rx Fluticasone [Flonase] 1 spray NS QDAY 14 Days #1 bottle 09/29/17 Unknown Rx Amoxicillin [Trimox CAP] 500 mg PO Q8H #15 capsule 06/05/18 Unknown Rx Ibuprofen [Motrin] 600 mg PO Q8H PRN #30 tablet 06/05/18 Unknown Rx Azithromycin [Zithromax Z-JONATHON] 0 mg PO DAILY #6 tab 10/22/18 Unknown Rx Cyclobenzaprine [Flexeril] 10 mg PO TID PRN #14 tablet 10/22/18 Unknown Rx Ibuprofen [Motrin 800 MG tab] 800 mg PO Q8HR PRN #20 tablet 10/22/18 Unknown Rx ED Review of Systems ROS: Stated complaint: BACK PAIN/NOSE STUFFY/PAIN Other details as noted in HPI Constitutional: chills. denies: fever Eyes: denies: eye pain ENT: denies: throat pain Respiratory: cough Cardiovascular: denies: chest pain Endocrine: no symptoms reported Gastrointestinal: denies: abdominal pain Genitourinary: denies: dysuria Musculoskeletal: back pain, arthralgia, myalgia Neurological: denies: headache Physical Exam - Physical Exam Vital Signs: Vital Signs 10/22/18 18:20 Temperature 97.9 F Pulse Rate 100 H Respiratory 20 Rate Blood Pressure 175/91 Blood Pressure 175/100 [Right] O2 Sat by Pulse 100 Oximetry Physical Exam: GENERAL: The patient is well-developed well-nourished male lying on stretcher not appearing to be in acute distress. [] HEENT: Normocephalic. Atraumatic. Extraocular motions are intact. Patient has moist mucous membranes. NECK: Supple. No meningitic signs are noted. There is no adenopathy noted. CHEST/LUNGS: Clear to auscultation. There is no respiratory distress noted. HEART/CARDIOVASCULAR: Regular. There is no tachycardia. There is no gallop rub or murmur. ABDOMEN: Abdomen is soft, nontender. Patient has normal bowel sounds. There is no abdominal distention. SKIN: There is no rash. There is no edema. There is no diaphoresis. NEURO: The patient is awake, alert, and oriented. The patient is cooperative. The patient has normal speech and gait. MUSCULOSKELETAL: There is no axial tenderness or deformity. There is no limitation range of motion. There is no evidence of acute injury. ED Course Vital Signs 10/22/18 18:20 Temperature 97.9 F Pulse Rate 100 H Respiratory 20 Rate Blood Pressure 175/91 Blood Pressure 175/100 [Right] O2 Sat by Pulse 100 Oximetry ED Medical Decision Making - Lab Data Result diagrams: 10/22/18 18:10 10/22/18 18:10 Laboratory Tests 10/22/18 10/22/18 10/22/18 18:10 18:10 18:10 WBC 9.6 RBC 4.44 Hgb 14.1 Hct 41.2 MCV 93 MCH 32 MCHC 34 RDW 13.8 Plt Count 231 Lymph % (Auto) 24.2 [place] % (Auto) 9.7 H Eos % (Auto) 3.1 Baso % (Auto) 0.9 Lymph # 2.3 [place] # 0.9 H Eos # 0.3 Baso # 0.1 Seg Neutrophils % 62.1 Seg Neutrophils # 6.0 PT 13.5 INR 0.97 APTT 28.4 Sodium 140 Potassium 4.4 Chloride 99.8 Carbon Dioxide 31 H Anion Gap 14 BUN 14 Creatinine 1.2 Estimated GFR > 60 BUN/Creatinine Ratio 12 Glucose 110 H Calcium 9.1 Troponin T < 0.010 - EKG Data -: EKG Interpreted by Me EKG shows normal: sinus rhythm Rate: normal - EKG Data When compared to previous EKG there are: previous EKG unavailable Interpretation: other (no ischemic changes seen) - Radiology Data Radiology results: report reviewed (chest x-ray), image reviewed (chest x-ray) interpreted by me: Chest x-ray-no focal infiltrates, no pneumothorax [facility] [address] [place] [address] XRay Report Signed Patient: HARI FOSTER MR#: [id number] : 1945 Acct:[id number] Age/Sex: 73 / M ADM Date: 10/22/18 Loc: ED Attending Dr: Ordering Physician: JANA JOHN NP Date of Service: 03/28/19 Procedure(s): XR chest routine 2V Accession Number(s): [id number] cc: JANA JOHN NP Fluoro Time In Minutes: PROCEDURE: XR CHEST ROUTINE 2V TECHNIQUE: PA and lateral chest radiographs were obtained. HISTORY: Chest Pain COMPARISONS: None. FINDINGS: Heart: Normal. Mediastinum/Vessels: Normal. Lungs/Pleural space: Mild prominence of interstitial markings is noted. There are no areas of consolidation or mass lesions. Pleural spaces are clear.. Bony thorax: No acute osseous abnormality. IMPRESSION: Mild prominence of interstitial markings may represent interstitial fibrosis. Otherwise unremarkable study. This document is electronically signed by Ivette Davis MD., October 22 2018 08:22:24 PM ET Transcribed By: [facility] Dictated By: IVETTE DAVIS Electronically Authenticated By: IVETTE DAVIS Signed Date/Time: 10/22/182023 DD/ 48 TD/TT: 10/22/181948 - Differential Diagnosis pneumonia, bronchitis, arthralgia Critical care attestation.: If time is entered above; I have spent that time in minutes in the direct care of this critically ill patient, excluding procedure time. ED Disposition Clinical Impression: Bronchitis, Myalgia, Arthralgia Disposition: DC-01 TO HOME OR SELFCARE Is pt being admited?: No Does the pt Need Aspirin: No Condition: Stable Instructions: Chronic Bronchitis (ED) Additional Instructions: Return to the emergency department immediately should you develop worsening symptoms, fever, inability to tolerate food or liquid or any other concerns. Prescriptions: Cyclobenzaprine [Flexeril] 10 mg PO TID PRN #14 tablet PRN Reason: Muscle Spasm Ibuprofen [Motrin 800 MG tab] 800 mg PO Q8HR PRN #20 tablet PRN Reason: Pain, Moderate (4-6) Azithromycin [Zithromax Z-JONATHON] 0 mg PO DAILY #6 tab Referrals: ADONIS ALVAREZ MD [Staff Physician] - 3-5 Days TREY FRIEND MD [Staff Physician] - 3-5 Days (Dr. Friend is an orthopedic surgeon. Please follow him for further evaluation of your back pain) Time of Disposition: 21:10
[2018-10-22 21:22] VITALS: BP 146/85
== END 2018-10-22 21:22 | disposition home or self-care (01) ==
LOC: ED 18:14
DX: J40 Bronchitis, not specified as acute or chronic (principal); M79.10 Myalgia, unspecified site; I10 Essential (primary) hypertension; E11.9 Type 2 diabetes mellitus without complications; Z87.891 Personal history of nicotine dependence
CPT/HCPCS: 36415; 71046; 80048; 84484; 85025; 85610; 85730; 93005; 93010; 99284

== ENCOUNTER 2019-04-06 16:59 | Emergency (ER) | payer MEDICARE, OTHER ==
[2019-04-06 17:26] VITALS: BP 117/72
--- NOTE | 2019-04-06 17:29 | Event Note ---
ED Screening Note Date of service: 04/06/19 Time: 17:26 ED Screening Note: This is a 73 y.o. M. that presents to the ER with polyuria and polydipsia. This initial assessment/diagnostic orders/clinical plan/treatment(s) is/are subject to change based on patients health status, clinical progression and re- assessment by fellow clinical providers in the ED. Further treatment and workup at subsequent clinical providers discretion. Patient/guardian urged not to elope from the ED as their condition may be serious if not clinically assessed and managed. Initial orders include: Accucheck 98
[2019-04-06 18:06] LABS: Bacteria,Urine 1+ /HPF (Negative); Bilirubin,Urine NEG (Negative); Blood,Urine SM (Negative); Color,Urine Yellow (Yellow); Mucus,Urine FEW /HPF; Protein,Urine <15 mg/dL mg/dL (Negative); Urobilinogen,Urine < 2.0 mg/dL (<2.0)
[2019-04-06 20:30] LABS: Basophils # (Auto) 0.1 K/mm3 (0.0-0.1); Basophils % (Auto) 0.9 % (0.0-1.8); Eosinophils # (Auto) 0.3 K/mm3 (0.0-0.4); Eosinophils % (Auto) 3.5 % (0.0-4.3); Hematocrit 45.5 % (35.5-45.6); Hemoglobin 15.1 gm/dl (11.8-15.2); Lymphocytes # (Auto) 2.6 K/mm3 (1.2-5.4); Lymphocytes % (Auto) 36.1 % (13.4-35.0); Mean Corpuscular HGB Conc 33 % (32-34); Mean Corpuscular Volume 94 fl (84-94); Monocytes # (Auto) 0.7 K/mm3 (0.0-0.8); Monocytes % (Auto) 10.3 % (0.0-7.3); Platelet Count 236 K/mm3 (140-440); Red Blood Count 4.83 M/mm3 (3.65-5.03); Red Cell Distribution Width 13.5 % (13.2-15.2)
[2019-04-06 20:40] LABS: INR 1.05 (0.87-1.13)
[2019-04-06 20:41] LABS: Partial Thromboplastin Time 30.2 Sec. (24.2-36.6)
[2019-04-06 20:56] LABS: Alanine Aminotransferase 13 units/L (7-56); Albumin 4.1 g/dL (3.9-5); BUN/Creatinine Ratio 17; Blood Urea Nitrogen 19 mg/dL (9-20); Calcium 9.6 mg/dL (8.4-10.2); Hemolysis Index 8
--- NOTE | 2019-04-06 22:02 | Emergency Department Report ---
ED General Adult HPI - General Chief complaint: Hyperglycemia Stated complaint: BODY PAIN Time Seen by Provider: 04/06/19 17:25 Source: patient Mode of arrival: Ambulatory Limitations: No Limitations - History of Present Illness Initial comments: Patient is a 73-year-old -Thai male with no past medical history except hypertension and chronic low back pain with sciatica who presents to the ED with complaint of persistent low back pain that is his lower extremities with tingling sensation. Patient also complains of tingling sensations in the upper extremities bilaterally. The patient states that he came to the ED for evaluation thinking that he may have developed [id number] diabetes because that is what he was told his symptoms portend. Patient denies chest pain, shortness of breath, dizziness, fever, chills, cough, abdominal pain, urinary frequency and urgency, polydipsia, polyuria, dizziness or lightheadedness. MD Complaint: low back pain; tingling sensations on upper and lower extremities -: Gradual, week(s) (2) Location: back Radiation: extremity (lower and upper extremities) Quality: aching, sharp Consistency: intermittent Improves with: none Worsens with: none Associated Symptoms: denies other symptoms, malaise. denies: confusion, chest pain, cough, diaphoresis, fever/chills, headaches, loss of appetite, nausea/vomiting, seizure, shortness of breath, syncope, weakness, other - Related Data Home Medications Medication Instructions Recorded Confirmed Last Taken Amoxicillin 500 mg PO TID 07/12/17 07/12/17 Unknown HYDROcodone/APAP 5-325 2 tab PO Q4H 07/12/17 07/12/17 Unknown Previous Rx's Medication Instructions Recorded Last Taken Type Bisacodyl [Dulcolax] 5 mg PO DAILY PRN #7 tab 12/04/16 Unknown Rx Clopidogrel [Plavix] 75 mg PO QDAY #30 tablet 12/04/16 Unknown Rx Sennosides/Docusate Sodium 1 each PO BID #60 tablet 12/04/16 Unknown Rx [Doc-Q-Lax Tablet] Simvastatin (Nf) [Zocor TAB] 20 mg PO QHS #30 tablet 12/04/16 Unknown Rx Prednisone [predniSONE 5 mg (6-Day 5 mg PO QAM 6 Days #1 tab.ds.pk 07/12/17 Unknown Rx Pack, 21 Tabs)] diphenhydrAMINE [Benadryl CAP] 25 mg PO Q8HR PRN 4 Days #12 07/12/17 Unknown Rx capsule Cetirizine HCl [ZyrTEC] 10 mg PO QAM 14 Days #14 capsule 09/29/17 Unknown Rx Fluticasone [Flonase] 1 spray NS QDAY 14 Days #1 bottle 09/29/17 Unknown Rx Amoxicillin [Trimox CAP] 500 mg PO Q8H #15 capsule 06/05/18 Unknown Rx Ibuprofen [Motrin] 600 mg PO Q8H PRN #30 tablet 06/05/18 Unknown Rx Azithromycin [Zithromax Z-JONATHON] 0 mg PO DAILY #6 tab 10/22/18 Unknown Rx Cyclobenzaprine [Flexeril] 10 mg PO TID PRN #14 tablet 10/22/18 Unknown Rx Ibuprofen [Motrin 800 MG tab] 800 mg PO Q8HR PRN #20 tablet 10/22/18 Unknown Rx Allergies Allergy/AdvReac Type Severity Reaction Status Date / Time No Known Allergies Allergy Verified 06/05/18 17:07 ED Review of Systems ROS: Stated complaint: BODY PAIN Other details as noted in HPI Constitutional: denies: chills, fever Eyes: denies: eye pain, eye discharge, vision change ENT: denies: ear pain, throat pain Respiratory: denies: cough, shortness of breath, wheezing Cardiovascular: denies: chest pain, palpitations Endocrine: no symptoms reported Gastrointestinal: denies: abdominal pain, nausea, diarrhea Genitourinary: denies: urgency, dysuria Musculoskeletal: back pain, arthralgia. denies: joint swelling Skin: denies: rash, lesions Neurological: denies: headache, weakness, paresthesias Psychiatric: denies: anxiety, depression Hematological/Lymphatic: denies: easy bleeding, easy bruising ED Past Medical Hx - Past Medical History Previous Medical History?: Yes Hx Hypertension: Yes Hx CVA: Yes Hx Congestive Heart Failure: No Hx Diabetes: Yes (?) Hx Deep Vein Thrombosis: No Hx Pulmonary Embolism: No Hx Liver Disease: No Hx Renal Disease: No Hx Sickle Cell Disease: No Hx Arthritis: No Hx Headaches / Migraines: No Hx Seizures: No Hx Kidney Stones: No Hx Psychiatric Treatment: No Hx Asthma: No Hx COPD: No Hx Tuberculosis: No Hx Dementia: No Additional medical history: Abdominal pain - Surgical History Past Surgical History?: No Hx Coronary Stent: No Hx Open Heart Surgery: No Hx Pacemaker: No Hx Internal Defibrillator: No Hx Cholecystectomy: No Hx Appendectomy: No Hx Breast Surgery: No - Social History Smoking Status: Never Smoker Substance Use Type: None - Medications Home Medications: Home Medications Medication Instructions Recorded Confirmed Last Taken Type Bisacodyl [Dulcolax] 5 mg PO DAILY PRN #7 tab 12/04/16 07/12/17 Unknown Rx Clopidogrel [Plavix] 75 mg PO QDAY #30 tablet 12/04/16 07/12/17 Unknown Rx Sennosides/Docusate Sodium 1 each PO BID #60 tablet 12/04/16 07/12/17 Unknown Rx [Doc-Q-Lax Tablet] Simvastatin (Nf) [Zocor TAB] 20 mg PO QHS #30 tablet 12/04/16 07/12/17 Unknown Rx Amoxicillin 500 mg PO TID 07/12/17 07/12/17 Unknown History HYDROcodone/APAP 5-325 2 tab PO Q4H 07/12/17 07/12/17 Unknown History Prednisone [predniSONE 5 mg (6-Day 5 mg PO QAM 6 Days #1 tab.ds.pk 07/12/17 Unknown Rx Pack, 21 Tabs)] diphenhydrAMINE [Benadryl CAP] 25 mg PO Q8HR PRN 4 Days #12 07/12/17 Unknown Rx capsule Cetirizine HCl [ZyrTEC] 10 mg PO QAM 14 Days #14 capsule 09/29/17 Unknown Rx Fluticasone [Flonase] 1 spray NS QDAY 14 Days #1 bottle 09/29/17 Unknown Rx Amoxicillin [Trimox CAP] 500 mg PO Q8H #15 capsule 06/05/18 Unknown Rx Ibuprofen [Motrin] 600 mg PO Q8H PRN #30 tablet 06/05/18 Unknown Rx Azithromycin [Zithromax Z-JONATHON] 0 mg PO DAILY #6 tab 10/22/18 Unknown Rx Cyclobenzaprine [Flexeril] 10 mg PO TID PRN #14 tablet 10/22/18 Unknown Rx Ibuprofen [Motrin 800 MG tab] 800 mg PO Q8HR PRN #20 tablet 10/22/18 Unknown Rx ED Physical Exam - General Limitations: No Limitations General appearance: alert, in no apparent distress - Head Head exam: Present: atraumatic, normocephalic, normal inspection - Eye Eye exam: Present: normal appearance, PERRL, EOMI Pupils: Present: normal accommodation - ENT ENT exam: Present: normal exam, normal orophraynx, mucous membranes moist, TM's normal bilaterally, normal external ear exam - Neck Neck exam: Present: normal inspection, full ROM - Respiratory Respiratory exam: Present: normal lung sounds bilaterally. Absent: respiratory distress, wheezes, rales, rhonchi, chest wall tenderness, accessory muscle use, decreased breath sounds - Cardiovascular Cardiovascular Exam: Present: regular rate, normal rhythm, normal heart sounds. Absent: systolic murmur, diastolic murmur, rubs, gallop - GI/Abdominal GI/Abdominal exam: Present: soft, normal bowel sounds. Absent: tenderness, guarding, hyperactive bowel sounds, organomegaly - Rectal Rectal exam: Present: deferred - Extremities Exam Extremities exam: Present: normal inspection, full ROM, normal capillary refill - Back Exam Back exam: Present: normal inspection, full ROM, tenderness, muscle spasm, paraspinal tenderness. Absent: CVA tenderness (L) - Neurological Exam Neurological exam: Present: alert, oriented X3, CN II-XII intact, normal gait, reflexes normal - Psychiatric Psychiatric exam: Present: normal affect, normal mood, anxious - Skin Skin exam: Present: warm, dry, intact, normal color. Absent: rash ED Course Vital Signs 04/06/19 17:25 Temperature 97.6 F Pulse Rate 97 H Respiratory 16 Rate Blood Pressure 117/72 O2 Sat by Pulse 96 Oximetry - Reevaluation(s) Reevaluation #1: 04/06/19 22:01 Patient is alert and oriented 3 and is not in distress with normal vital signs. In the ED, patient is alert and oriented 3 and is not in distress. Lab test results were reviewed and are nonactionable. Patient patient signed out AGAINST MEDICAL ADVICE in the ED after being treated in the ED. Patient stated that he would like to follow-up with his primary care physician instead of being in the ED. ED Medical Decision Making - Lab Data Result diagrams: 04/06/19 20:10 04/06/19 20:10 - Medical Decision Making Patient is alert and oriented 3 and is not in distress with normal vital signs. In the ED, patient is alert and oriented 3 and is not in distress. Lab test results were reviewed and are nonactionable. Patient patient signed out AGAINST MEDICAL ADVICE in the ED after being treated in the ED. Patient stated that he would like to follow-up with his primary care physician instead of being in the ED. - Differential Diagnosis chronic low back pain; chronic sciatica; anxiety Critical care attestation.: If time is entered above; I have spent that time in minutes in the direct care of this critically ill patient, excluding procedure time. ED Disposition Clinical Impression: Anxiety as acute reaction to exceptional stress Chronic low back pain with sciatica Qualifiers: Back pain laterality: unspecified Sciatica laterality: sciatica laterality unspecified Qualified Code(s): M54.40 - Lumbago with sciatica, unspecified side; G89.29 - Other chronic pain Disposition: LEFT AGAINST MED ADVICE Is pt being admited?: No Does the pt Need Aspirin: No Condition: Stable Instructions: Lumbar Radiculopathy (ED) Referrals: PRIMARY CARE, [Primary Care Provider] - 3-5 Days Forms: AMA Form Time of Disposition: 21:50 Print Language: CYMRO
== END 2019-04-06 21:00 | disposition left against medical advice (07) ==
LOC: ED 16:59
DX: G89.29 Other chronic pain (principal); M54.40 Lumbago with sciatica, unspecified side; R20.2 Paresthesia of skin; F41.1 Generalized anxiety disorder; I10 Essential (primary) hypertension; E11.9 Type 2 diabetes mellitus without complications; Z86.73 Personal history of transient ischemic attack (TIA), and cerebral infarction without residual deficits
CPT/HCPCS: 36415; 80053; 81001; 82962; 84484; 85025; 85610; 85730

== ENCOUNTER 2019-07-10 16:42 | Emergency (ER) | payer MEDICARE, OTHER ==
--- NOTE | 2019-07-10 17:07 | Event Note ---
ED Screening Note Date of service: 07/10/19 Time: 17:02 ED Screening Note: This is a 73 y.o. M. that presents to the ER with right sided numbness for 3 days and constipation for 1 week. PMH of TIA, DM2, HTN, and constipation. Reports taking laxative and enema with no BM. Increasing diffuse abdominal cramps. This initial assessment/diagnostic orders/clinical plan/treatment(s) is/are subject to change based on patients health status, clinical progression and re- assessment by fellow clinical providers in the ED. Further treatment and workup at subsequent clinical providers discretion. Patient/guardian urged not to elope from the ED as their condition may be serious if not clinically assessed and managed. Initial orders include: Labs, CT of head, and XR of abdomen
--- NOTE | 2019-07-10 17:49 | XRay Report ---
ABDOMEN, 2 VIEWS INDICATION / CLINICAL INFORMATION: diffuse abdominal pain. COMPARISON: None available. FINDINGS: Bowel gas pattern is normal other than a moderate amount retained stool. No visible fecal impaction. No abnormally dilated loops of bowel are present. No free air. No abnormal calcifications. Osseous structures are unremarkable other than mild degenerative change. IMPRESSION: No acute abnormality. Signer Name: Dimple Caballero MD Signed: 07/10/2019 5:44 PM Workstation Name: [id number]
--- NOTE | 2019-07-10 18:15 | Cat Scan Report ---
CT BRAIN: 07/10/2019 INDICATION / CLINICAL INFORMATION: neuro deficits <6hrs or sx present upon awakening. COMPARISON: 12/02/2016 FINDINGS: BRAIN/INTRACRANIAL STRUCTURES: Unenhanced CT images of the brain demonstrate no evidence of acute int racranial abnormality. Ventricles and sulci are within normal limits of size and shape for a patient of this age, consistent with age-related atrophic change. There is no CT evidence of acute ischemic injury, hemorrhage, or mass. There are no abnormal extra-ax ial fluid collections. EXTRACRANIAL STRUCTURES: Unremarkable. IMPRESSION: No acute abnormality. No change when compared to prior exam. All CT scans at this location are performed using dose reduction to ALARA by means of automated expos ure control. Signer Name: Colin Younger MD Signed: 07/10/2019 6:10 PM Workstation Name: [id number]
[2019-07-10 20:55] LABS: Basophils # (Auto) 0.1 K/mm3 (0.0-0.1); Basophils % (Auto) 0.8 % (0.0-1.8); Eosinophils # (Auto) 0.2 K/mm3 (0.0-0.4); Eosinophils % (Auto) 2.8 % (0.0-4.3); Hematocrit 44.7 % (35.5-45.6); Hemoglobin 15.1 gm/dl (11.8-15.2); Lymphocytes # (Auto) 2.6 K/mm3 (1.2-5.4); Lymphocytes % (Auto) 33.5 % (13.4-35.0); Mean Corpuscular HGB Conc 34 % (32-34); Mean Corpuscular Volume 94 fl (84-94); Monocytes # (Auto) 1.1 K/mm3 (0.0-0.8); Monocytes % (Auto) 13.6 % (0.0-7.3); Platelet Count 229 K/mm3 (140-440); Red Blood Count 4.77 M/mm3 (3.65-5.03); Red Cell Distribution Width 13.6 % (13.2-15.2)
--- NOTE | 2019-07-10 20:58 | Emergency Department Report ---
ED Neuro Deficit HPI - General Chief Complaint: Neuro Symptoms/Deficit Stated Complaint: NO BOWEL/RT SIDE NUMB/TINGLE Time Seen by Provider: 07/10/19 17:01 Source: patient Mode of arrival: Ambulatory Limitations: No Limitations - History of Present Illness Initial Comments: 73 year old male the past medical history previous CVA, borderline diabetes, hyp ertension, and chronic constipation presents to the hospital complains of constipation and right-sided numbness and tingling sensation worse for a couple of days. Patient complains of numbness and tingling from the right side of his face, arm, down to his leg and foot. Patient has had the symptoms that have been waxing and waning for several years since his stroke in November 2016. Patient was admitted here November 2016 with right sided sensory complaints and had a MRI showing cerebellar ischemia. Patient has presented here several times since that CVA with similar neurologic complaints. Compliant with his aspirin 81 mg 3 tablets daily last dose today. Patient complains of chronic intermittent constipation is also been seen here with same complaint. He is taking fiber in [id number] stool softeners without improvement. Last bowel movement was 3 days ago. Does have intermittent nausea vomiting when feeling for after eating. He denies abdominal pain. PMD: Dr. Alvarez - Related Data Home Medications: Home Medications Medication Instructions Recorded Confirmed Last Taken Amoxicillin 500 mg PO TID 07/12/17 07/12/17 Unknown HYDROcodone/APAP 5-325 2 tab PO Q4H 07/12/17 07/12/17 Unknown Previous Rx's Medication Instructions Recorded Last Taken Type Bisacodyl [Dulcolax] 5 mg PO DAILY PRN #7 tab 12/04/16 Unknown Rx Clopidogrel [Plavix] 75 mg PO QDAY #30 tablet 12/04/16 Unknown Rx Sennosides/Docusate Sodium 1 each PO BID #60 tablet 12/04/16 Unknown Rx [Doc-Q-Lax Tablet] Simvastatin (Nf) [Zocor TAB] 20 mg PO QHS #30 tablet 12/04/16 Unknown Rx Prednisone [predniSONE 5 mg (6-Day 5 mg PO QAM 6 Days #1 tab.ds.pk 07/12/17 Unknown Rx Pack, 21 Tabs)] diphenhydrAMINE [Benadryl CAP] 25 mg PO Q8HR PRN 4 Days #12 07/12/17 Unknown Rx capsule Cetirizine HCl [ZyrTEC] 10 mg PO QAM 14 Days #14 capsule 09/29/17 Unknown Rx Fluticasone [Flonase] 1 spray NS QDAY 14 Days #1 bottle 09/29/17 Unknown Rx Amoxicillin [Trimox CAP] 500 mg PO Q8H #15 capsule 06/05/18 Unknown Rx Ibuprofen [Motrin] 600 mg PO Q8H PRN #30 tablet 06/05/18 Unknown Rx Azithromycin [Zithromax Z-JONATHON] 0 mg PO DAILY #6 tab 10/22/18 Unknown Rx Cyclobenzaprine [Flexeril] 10 mg PO TID PRN #14 tablet 10/22/18 Unknown Rx Ibuprofen [Motrin 800 MG tab] 800 mg PO Q8HR PRN #20 tablet 10/22/18 Unknown Rx Polyethylene Glycol 3350 [Miralax] 17 gm PO DAILY PRN #7 powder 07/10/19 Unknown Rx Allergies/Adverse Reactions: Allergies Allergy/AdvReac Type Severity Reaction Status Date / Time No Known Allergies Allergy Verified 06/05/18 17:07 ED Review of Systems ROS: Stated complaint: NO BOWEL/RT SIDE NUMB/TINGLE Other details as noted in HPI Comment: All other systems reviewed and negative ED Past Medical Hx - Past Medical History Hx Hypertension: Yes Hx CVA: Yes Hx Congestive Heart Failure: No Hx Diabetes: Yes (?) Hx Deep Vein Thrombosis: No Hx Pulmonary Embolism: No Hx Liver Disease: No Hx Renal Disease: No Hx Sickle Cell Disease: No Hx Arthritis: No Hx Headaches / Migraines: No Hx Seizures: No Hx Kidney Stones: No Hx Psychiatric Treatment: No Hx Asthma: No Hx COPD: No Hx Tuberculosis: No Hx Dementia: No Additional medical history: Abdominal pain - Surgical History Hx Coronary Stent: No Hx Open Heart Surgery: No Hx Pacemaker: No Hx Internal Defibrillator: No Hx Cholecystectomy: No Hx Appendectomy: No Hx Breast Surgery: No - Social History Smoking Status: Never Smoker Substance Use Type: None - Medications Home Medications: Home Medications Medication Instructions Recorded Confirmed Last Taken Type Bisacodyl [Dulcolax] 5 mg PO DAILY PRN #7 tab 12/04/16 07/12/17 Unknown Rx Clopidogrel [Plavix] 75 mg PO QDAY #30 tablet 12/04/16 07/12/17 Unknown Rx Sennosides/Docusate Sodium 1 each PO BID #60 tablet 12/04/16 07/12/17 Unknown Rx [Doc-Q-Lax Tablet] Simvastatin (Nf) [Zocor TAB] 20 mg PO QHS #30 tablet 12/04/16 07/12/17 Unknown Rx Amoxicillin 500 mg PO TID 07/12/17 07/12/17 Unknown History HYDROcodone/APAP 5-325 2 tab PO Q4H 07/12/17 07/12/17 Unknown History Prednisone [predniSONE 5 mg (6-Day 5 mg PO QAM 6 Days #1 tab.ds.pk 07/12/17 U nknown Rx Pack, 21 Tabs)] diphenhydrAMINE [Benadryl CAP] 25 mg PO Q8HR PRN 4 Days #12 07/12/17 Unknown Rx capsule Cetirizine HCl [ZyrTEC] 10 mg PO QAM 14 Days #14 capsule 09/29/17 Unknown Rx Fluticasone [Flonase] 1 spray NS QDAY 14 Days #1 bottle 09/29/17 Unknown Rx Amoxicillin [Trimox CAP] 500 mg PO Q8H #15 capsule 06/05/18 Unknown Rx Ibuprofen [Motrin] 600 mg PO Q8H PRN #30 tablet 06/05/18 Unknown Rx Azithromycin [Zithromax Z-JONATHON] 0 mg PO DAILY #6 tab 10/22/18 Unknown Rx Cyclobenzaprine [Flexeril] 10 mg PO TID PRN #14 tablet 10/22/18 Unknown Rx Ibuprofen [Motrin 800 MG tab] 800 mg PO Q8HR PRN #20 tablet 10/22/18 Unknown Rx Polyethylene Glycol 3350 [Miralax] 17 gm PO DAILY PRN #7 powder 07/10/19 Unknown Rx ED Neuro Physical Exam - General Limitations: No Limitations Suspected Stroke: No - NIHSS Assessment Interval: Baseline 1a. Level of Consciousness: alert/keenly responsive 1b. LOC Questions: answers both correctly 1c. LOC Commands: performs tasks correctly 2. Best Gaze: normal 3. Visual: no visual loss 4. Facial Palsy: normal symmetrical movement 5b. Motor Arm Right: no drift 5a. Motor Arm Left: no drift 6a. Motor Leg Left: no drift 6b. Motor Leg Right: no drift 7. Limb Ataxia: absent 8. Sensory: mild/moderate sensory loss (mild decrease sensation to touch of right leg compared to left) 9. Best Language: no aphasia 10. Dysarthria: normal 11. Extinction/Inattention: no abnormality Total Score: 1 Stroke Severity: Minor Stroke - Other Other exam information: General: No acute distress Head: Atraumatic Eyes: normal appearance ENT: Moist mucous membranes Neck: Normal appearance, no midline tenderness Chest: Clear to auscultation bilaterally CV: Regular rate and rhythm Abdomen: Soft, normal bowel sounds, nontender, nondistended, no rebound or guarding Back: Normal inspection Extremity: Normal inspection infection, full range of motion Neuro: Alert O x 3, no facial asymmetry, speech clear, gross sensation to light touch to bilateral face, arms, but complaining of mild decreased sensitivity to touch the right leg compared to left. Otherwise strength and sensation to light touch intact see NIHSS Psych: Appropriate behavior Skin: No rash ED Course Vital Signs 07/10/19 07/10/19 07/10/19 16:49 17:02 20:02 Temperature 97.4 F L 97.4 F L Pulse Rate 112 H 106 H 86 Respiratory 18 16 17 Rate Blood Pressure 141/88 Blood Pressure 141/88 [Left] O2 Sat by Pulse 93 97 Oximetry 07/10/19 07/10/19 07/10/19 20:16 20:30 20:46 Temperature Pulse Rate 88 81 80 Respiratory 14 11 L 10 L Rate Blood Pressure 145/95 145/95 145/95 Blood Pressure [Left] O2 Sat by Pulse 100 98 88 Oximetry 07/10/19 07/10/19 21:00 21:04 Temperature Pulse Rate 81 Respiratory 11 L 18 Rate Blood Pressure 145/95 Blood Pressure [Left] O2 Sat by Pulse 97 Oximetry - Lab Data Result diagrams: 07/10/19 20:20 07/10/19 20:20 Lab Results 07/10/19 07/10/19 07/10/19 Range/Units 20:20 20:20 20:20 WBC 7.9 (4.5-11.0) K/mm3 RBC 4.77 (3.65-5.03) M/mm3 Hgb 15.1 (11.8-15.2) gm/dl Hct 44.7 (35.5-45.6) % MCV 94 (84-94) fl MCH 32 (28-32) pg MCHC 34 (32-34) % RDW 13.6 (13.2-15.2) % Plt Count 229 (140-440) K/mm3 Lymph % (Auto) 33.5 (13.4-35.0) % [place] % (Auto) 13.6 H (0.0-7.3) % Eos % (Auto) 2.8 (0.0-4.3) % Baso % (Auto) 0.8 (0.0-1.8) % Lymph # 2.6 (1.2-5.4) K/mm3 [place] # 1.1 H (0.0-0.8) K/mm3 Eos # 0.2 (0.0-0.4) K/mm3 Baso # 0.1 (0.0-0.1) K/mm3 Seg Neutrophils % 49.3 (40.0-70.0) % Seg Neutrophils # 3.9 (1.8-7.7) K/mm3 PT 13.6 (12.2-14.9) Sec. INR 1.03 (0.87-1.13) APTT 30.1 (24.2-36.6) Sec. Thrombin Time (15.1-19.6) Sec. Sodium 135 L (137-145) mmol/L Potassium 3.5 L (3.6-5.0) mmol/L Chloride 98.0 (98-107) mmol/L Carbon Dioxide 27 (22-30) mmol/L Anion Gap 14 mmol/L BUN 10 (9-20) mg/dL Creatinine 1.0 (0.8-1.5) mg/dL Estimated GFR > 60 ml/min BUN/Creatinine Ratio 10 % Glucose 91 (75-100) mg/dL Calcium 8.8 (8.4-10.2) mg/dL Troponin T < 0.010 (0.00-0.029) ng/mL 07/10/19 Range/Units 20:20 WBC (4.5-11.0) K/mm3 RBC (3.65-5.03) M/mm3 Hgb (11.8-15.2) gm/dl Hct (35.5-45.6) % MCV (84-94) fl MCH (28-32) pg MCHC (32-34) % RDW (13.2-15.2) % Plt Count (140-440) K/mm3 Lymph % (Auto) (13.4-35.0) % [place] % (Auto) (0.0-7.3) % Eos % (Auto) (0.0-4.3) % Baso % (Auto) (0.0-1.8) % Lymph # (1.2-5.4) K/mm3 [place] # (0.0-0.8) K/mm3 Eos # (0.0-0.4) K/mm3 Baso # (0.0-0.1) K/mm3 Seg Neutrophils % (40.0-70.0) % Seg Neutrophils # (1.8-7.7) K/mm3 PT (12.2-14.9) Sec. INR (0.87-1.13) APTT (24.2-36.6) Sec. Thrombin Time 16.4 (15.1-19.6) Sec. Sodium (137-145) mmol/L Potassium (3.6-5.0) mmol/L Chloride (98-107) mmol/L Carbon Dioxide (22-30) mmol/L Anion Gap mmol/L BUN (9-20) mg/dL Creatinine (0.8-1.5) mg/dL Estimated GFR ml/min BUN/Creatinine Ratio % Glucose (75-100) mg/dL Calcium (8.4-10.2) mg/dL Troponin T (0.00-0.029) ng/mL - EKG Data -: EKG Interpreted by Al EKG shows normal: sinus rhythm, ST-T waves (no stemi, t inv) Rate: normal - Radiology Data Radiology results: report reviewed CT BRAIN: 07/10/2019 INDICATION / CLINICAL INFORMATION: neuro deficits <6hrs or sx present upon awakening. COMPARISON: 12/02/2016 FINDINGS: BRAIN/INTRACRANIAL STRUCTURES: Unenhanced CT images of the brain demonstrate no evidence of acute intracranial abnormality. Ventricles and sulci are within normal limits of size and shape for a patient of this age, consistent with age-related atrophic change. There is no CT evidence of acute ischemic injury, hemorrhage, or mass. T here are no abnormal extra-axial fluid collections. EXTRACRANIAL STRUCTURES: Unremarkable. IMPRESSION: No acute abnormality. No change when compared to prior exam. ABDOMEN, 2 VIEWS INDICATION / CLINICAL INFORMATION: diffuse abdominal pain. COMPARISON: None available. FINDINGS: Bowel gas pattern is normal other than a moderate amount retained stool. No visible fecal impaction. No abnormally dilated loops of bowel are present. No free air. No abnormal calcifications. Osseous structures are unremarkable other than mild degenerative change. IMPRESSION: No acute abnormality. - Medical Decision Making pt has chronic constipation, no signs of obstruction or fecal impaction Patient has chronic right-sided numbness that is intermittent for years without acute findings on CT po kcl given for mild hypokalemia follow up with pmd and several specialists advised - Differential Diagnosis obstruction, constipation,lab abnormality, CVA, neuropathy, sciatica Critical Care Time: No Critical care attestation.: If time is entered above; I have spent that time in minutes in the direct care of this critically ill patient, excluding procedure time. ED Disposition Clinical Impression: Chronic constipation, History of sensory changes Disposition: TO HOME OR SELFCARE Is pt being admited?: No Does the pt Need Aspirin: No Condition: Stable Instructions: Paresthesia (ED), Constipation (ED) Additional Instructions: Take the medication as prescribed. Follow-up with your doctor or doctor/clinic provided. Return if symptoms worsen as indicated by your discharge instructions. Prescriptions: Polyethylene Glycol 3350 [Miralax] 17 gm PO DAILY PRN #7 powder PRN Reason: Constipation Referrals: PRIMARY CAREMD [Primary Care Provider] - 3-5 Days SOREN RODRIGUEZ MD [Staff Physician] - 3-5 Days (neurologist) [facility] [Provider Group] - 7-10 days (gi doctor) ADONIS ALVAREZ MD [Staff Physician] - 3-5 Days (primary care ) Time of Disposition: 00:00
[2019-07-10 21:03] LABS: INR 1.03 (0.87-1.13)
[2019-07-10 21:04] VITALS: BP 145/95
[2019-07-10 21:04] LABS: Partial Thromboplastin Time 30.1 Sec. (24.2-36.6)
[2019-07-10 21:07] LABS: BUN/Creatinine Ratio 10; Blood Urea Nitrogen 10 mg/dL (9-20); Calcium 8.8 mg/dL (8.4-10.2); Hemolysis Index 17
[2019-07-10] MEDS ORDERED: POTASSIUM CHLORIDE ER 20 MEQ TAB PO ONE (23:54)
== END 2019-07-11 00:57 | disposition home or self-care (01) ==
LOC: ED 16:42
DX: K59.09 Other constipation (principal); I10 Essential (primary) hypertension; E11.9 Type 2 diabetes mellitus without complications; Z86.69 Personal history of other diseases of the nervous system and sense organs; Z86.73 Personal history of transient ischemic attack (TIA), and cerebral infarction without residual deficits; Z79.899 Other long term (current) drug therapy
CPT/HCPCS: 36415; 70450; 74019; 80048; 84484; 85025; 85610; 85670; 85730; 93005; 93010

== ENCOUNTER 2021-11-13 08:14 | Outpatient (CLI) | payer MEDICARE, OTHER ==
--- NOTE | 2021-11-13 11:48 | Fluoroscopy Report ---
BARIUM SWALLOW Indication: R13.10 DYSPHAGIA. Technique: Single and double contrast barium technique utilized to evaluate the esophagus. FINDINGS: To begin the exam, swallowing was evaluated in the lateral position under direct fluorosco py. Deglutition is within normal limits. There is however moderate residuals in the vallecula and pi riform sinuses which took additional swallows to clear. A few episodes of laryngeal penetration was w itnessed during this exam. No yoni aspiration. 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 This appears to mildly obstruct ing. A barium tablet was administered which was lodged at this level and took several swallows to donaldo ar the barium tablet. A Schatzki's ring is also identified near the GE junction. No associated hiatal hernia was visualized during this exam. This did not appear to obstruct as a barium tablet was able to transverse this reg ion without difficulty. No esophageal mass or mucosal lesion is detected. Mild esophageal dysmotility was witnessed throughout this exam. No episodes of reflux were seen. IMPRESSION: Abnormal esophagram. There is moderate barium residual in the vallecula and piriform sinuses which took additional swallow s to clear. 1 or 2 episodes of laryngeal penetration was witnessed. No aspiration was witnessed. There appears to be an esophageal ring or web at the level of C7 which mildly obstructing. See above. 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 There is also suggestion of a Schatzki's ring which does not appear to obstruct. Mild to moderate esophageal dysmotility. Fluoroscopic time: 7.8 minutes Number of fluoroscopic images: 121 Signer Name: Kevan Carver Jr, MD Signed: 11/13/2021 11:43 AM Workstation Name: [id number]
== END 2021-11-13 08:15 | disposition home or self-care (01) ==
LOC: FLUORO 08:14
PROVIDERS: ATTEND Otolaryngology
DX: J39.2 Other diseases of pharynx (principal); K22.9 Disease of esophagus, unspecified
CPT/HCPCS: 74220